=== PATIENT | female | born 1975 | race Caucasian/White ===

== ENCOUNTER 2018-01-26 11:40 | Emergency (ER) | payer MEDICARE, MEDICAID, SELFPAY ==
[2018-01-26 12:03] VITALS: BP 134/67; PULSE 77; RESP 15; TEMP 36.6; O2SAT 98
[2018-01-26] MEDS: Lidocaine 1% Pres-Free 5 ML VIAL (13:22)
--- NOTE | 2018-01-26 13:23 | ED.GENADUL ---
Disposition Clinical Impression: Fish hook injury of finger of left hand Disposition: HOME Condition: Improving Instructions: Soft Tissue Foreign Body (ED) Additional Instructions: Return immediately for any signs of infection such as purulent drainage, significant increase in swelling or redness, redness up the arm. Otherwise keep wound clean and dry and take [id number] Tylenol Motrin as needed for discomfort Prescriptions: Sulfameth/Trimeth Ds [Bactrim Ds Tablet] 2 each PO BID #10 tab Referrals: Briana Oseguera [Primary Care Provider] - (As needed for reassessment) Medical Decision Making - Medical Decision Making Patient presenting the emergency department for fishhook injury to left middle finger while attempting to remove it from a vacuum leather cleaner. Patient is unsure if fishhook had been used before. Patient consented to digital block and 3 mL's were instilled into the finger and attempt to remove the fishhook was done which is altered and inability to fully remove it due to only partial anesthetic level. 1 more mL was injected locally to area of fishhook and appropriate anesthetic level was achieved and fishhook was then cut and pushed through the skin. Puncture wound was then irrigated with saline. Patient was placed upon Bactrim for empiric treatment of possible infection and encouraged to return immediately for any new or worsening symptoms otherwise follow-up with primary care as needed. Patient tolerated procedure well with no complications beyond mild bleeding. After discussion of diagnosis and plan of care with patient patient agreed and stated no further needs, questions, or concerns at this time. History of Present Illness - General Chief complaint: Laceration Stated complaint: FISH HOOK Time Seen by Provider: 01/26/18 13:22 Source: patient, RN notes reviewed Mode of arrival: ambulatory Limitations: no limitations - History of Present Illness Initial comments: Patient reports approximately 20 minutes prior to arrival she was attempting to remove a fishhook from her vacuum leather cleaner. When she was pulling on it she got stuck in her left middle finger. Patient denies any other injury or trauma. She does state that she attempted to remove it but due to severe pain was unable to remove it. Onset/Timin -: minutes(s) Location: left, upper extremity Severity scale (1-10): 8 Quality: sharp Consistency: constant Improves with: none Worsens with: none Associated Symptoms: denies other symptoms Treatments Prior to Arrival: none - Related Data Ibuprofen [Motrin] 800 mg PO PRN PRN 02/16/13 OxyCODONE/APAP 5 mg/325 mg [Percocet 5 mg/325 mg] 1 tab PO TID PRN PRN 02/16/13 Oxycodone HCl [Oxycontin] 20 mg PO BID 02/16/13 Pregabalin [Lyrica] 150 mg PO TID 02/16/13 Fluoxetine HCl 60 mg PO BID 06/05/13 Nicotine [Nicoderm Cq] 21 mg TP DAILY 06/05/13 TiZANidine [Zanaflex] 4 mg PO TID PRN 12/16/13 Albuterol Sulfate [Proair Hfa] 2 puff IH Q4H PRN inhaler 05/17/17 Sulfameth/Trimeth Ds [Bactrim Ds Tablet] 2 each PO BID #10 tab 01/26/18 Allergies Allergy/AdvReac Type Severity Reaction Status Date / Time Penicillins Allergy Unknown Unverified 01/26/18 12:06 morphine AdvReac Intermediate FLU LIKE Unverified 01/26/18 12:06 SYMPTOMS hydrocodone bitartrate AdvReac Unknown Nausea Unverified 01/26/18 12:06 [From Vicodin] Review of Systems Constitutional: denies: chills, fever Musculoskeletal: as per HPI Skin: as per HPI Comment: All other systems reviewed and negative Past Medical History - Past Medical History Back pain/sciatica, carpal tunnel Surgical history: other (Breast reduction, back surgery) Psychiatric history: depression 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 Absent: altered, motor sensory deficit - Psychiatric Psychiatric exam: Present: anxious - Skin Skin exam: Present: warm, dry, other (Patient has a metallic fishhook noted in the left middle finger with mild bleeding and swelling surrounding the area.) Course Vital Signs - 24 hr 01/26/18 12:03 Temperature 36.6 C Pulse 77 Respiratory 15 Rate Blood Pressure 134/67 Pulse Oximetry 98
--- NOTE | 2018-01-26 13:26 | ED.GENADUL_ITS ---
Disposition Clinical Impression: Fish hook injury of finger of left hand Disposition: HOME Condition: Improving Instructions: Soft Tissue Foreign Body (ED) Additional Instructions: Return immediately for any signs of infection such as purulent drainage, significant increase in swelling or redness, redness up the arm. 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 Patient is unsure if fishhook had been used before. Patient consented to digital block and 3 mL' s were instilled into the finger and attempt to remove the fishhook was done which is altered and inability to fully remove it due to only partial anesthetic level. 1 more mL was injected locally to area of fishhook and appropriate anesthetic level was achieved and fishhook was then cut and pushed through the skin. Puncture wound was then irrigated with saline. Patient was placed upon Bactrim for empiric treatment of possible infection and encouraged to return immediately for any new or worsening symptoms otherwise follow-up with primary care as needed. Patient tolerated procedure well with no complications beyond mild bleeding. After discussion of diagnosis and plan of care with patient patient agreed and stated no further needs, questions, or concerns at this time. 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 When she was pulling on it she got stuck in her left middle finger. Patient denies any other injury or trauma. She does state that she attempted to remove it but due to severe pain was unable to remove it. Onset/Timin -: minutes(s) Location: left, upper extremity Severity scale (1-10): 8 Quality: sharp Consistency: constant Improves with: none Worsens with: none Associated Symptoms: denies other symptoms Treatments Prior to Arrival: none - Related Data Ibuprofen [Motrin] 800 mg PO PRN PRN 02/16/13 OxyCODONE/APAP 5 mg/325 mg [Percocet 5 mg/325 mg] 1 tab PO TID PRN PRN 02/16/13 Oxycodone HCl [Oxycontin] 20 mg PO BID 02/16/13 Pregabalin [Lyrica] 150 mg PO TID 02/16/13 Fluoxetine HCl 60 mg PO BID 06/05/13 Nicotine [Nicoderm Cq] 21 mg TP DAILY 06/05/13 TiZANidine [Zanaflex] 4 mg PO TID PRN 12/16/13 Albuterol Sulfate [Proair Hfa] 2 puff IH Q4H PRN inhaler 05/17/17 Sulfameth/Trimeth Ds [Bactrim Ds Tablet] 2 each PO BID #10 tab 01/26/18 Allergies Allergy/AdvReac Type Severity Reaction Status Date / Time Penicillins Allergy Unknown Unverified 01/26/18 12:06 morphine AdvReac Intermediate FLU LIKE Unverified 01/26/18 12:06 SYMPTOMS hydrocodone bitartrate AdvReac Unknown Nausea Unverified 01/26/18 12:06 [From Vicodin] Review of Systems Constitutional: denies: chills, fever Musculoskeletal: as per HPI Skin: as per HPI Comment: All other systems reviewed and negative Past Medical History - Past Medical History Back pain/sciatica, carpal tunnel Surgical history: other (Breast reduction, back surgery) Psychiatric history: depression [employer]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 Absent: altered, motor sensory deficit - Psychiatric Psychiatric exam: Present: anxious - Skin Skin exam: Present: warm, dry, other (Patient has a metallic fishhook noted in the left middle finger with mild bleeding and swelling surrounding the area.) Course Vital Signs - 24 hr 01/26/18 12:03 Temperature 36.6 C Pulse 77 Respiratory 15 Rate Blood Pressure 134/67 Pulse Oximetry 98
[2018-01-26] MEDS: Sulfameth/Trimeth DS TAB 2 TAB PO (13:29)
== END 2018-01-26 13:33 | disposition home or self-care (01) ==
PROVIDERS: Emergency Provider Emergency Medicine; PCP Nurse Practitioner Family
DX: S60.453A Superficial foreign body of left middle finger, initial encounter (principal); W45.8XXA Other foreign body or object entering through skin, initial encounter
CPT/HCPCS: 64450 ×2; 90471; 99283 ×2

== ENCOUNTER 2019-04-08 14:28 | Outpatient (REF) | payer MEDICARE, SELFPAY ==
[2019-04-10 11:47] LABS: Hepatitis B Surface Ag Negative (NEGAT)
[2019-04-10 12:48] LABS: Hepatitis C Ab w Rflx HCV PCR Negative (NEGAT)
[2019-04-10 12:51] LABS: HIV-1/2 Ag & Ab Screen Negative (NEGAT)
== END 2019-04-08 14:48 ==
LOC: NCHCN 14:28
PROVIDERS: PCP Nurse Practitioner Family; Visit Provider Family Medicine
DX: Z11.59 Encounter for screening for other viral diseases (principal); Z11.4 Encounter for screening for human immunodeficiency virus [HIV]; R69 Illness, unspecified
CPT/HCPCS: 86803; 87340; 87389

== ENCOUNTER 2021-02-08 14:44 | Outpatient (REF) | payer OTHER, MEDICAID, SELFPAY ==
--- NOTE | 2021-02-08 11:00 | PAPFT_PTH ---
PATIENT: Cherelle Gibbons LOC: [facility] U#:[id number] AGE/SX: 45/F ROOM: RE02/08/[address]: Frederick Jimenez : 1975 BED: DIS: 02/08/2021 SPEC #: [id number] RECD: 02/09/21 18:08 STATUS: IRA REQ #: [id number] KWAME: 02/08/21 11:[address]: Frederick Jimenez DEPT: [facility] Cytology RECD BY: Yary Lewis Tissues: 1 - CX/ENDOCX FOR PAP SMEARS Procedures: PAP THIN PREP/UVM Screening HPV DNA PROBE Comments: [id number]
[2021-02-13 14:40] LABS: Chlamydia Result Negative (Negative); GC Result Negative (Negative)
== END 2021-02-08 14:45 | disposition home or self-care (01) ==
LOC: LBN 14:44
PROVIDERS: PCP Family Medicine; Visit Provider Family Medicine
DX: Z11.3 Encounter for screening for infections with a predominantly sexual mode of transmission (principal); Z12.4 Encounter for screening for malignant neoplasm of cervix; Z11.51 Encounter for screening for human papillomavirus (HPV); Z01.419 Encounter for gynecological examination (general) (routine) without abnormal findings
CPT/HCPCS: 87491; 87591; 88142; 87624

== ENCOUNTER → 2021-11-22 01:23 | Outpatient (CLI) | payer OTHER, MEDICAID, SELFPAY ==
--- NOTE | 2021-11-22 13:13 | DI.RAD_ITS ---
Exam(s) XR CHEST 2V PA LATERAL EXAM: XR CHEST 2V PA LATERAL CLINICAL HISTORY: SOB, R06.02. TECHNIQUE: 2D digital imaging was performed. COMPARISON: CR CHEST 2 VIEWS PA,LAT from 08/20/2016 FINDINGS: 2 views: Heart size is normal. The mediastinum is not widened. Lungs are clear. No infiltrates nor pleural effusions. IMPRESSION: No acute pulmonary findings.No significant change compared to 08/20/2016. DATA REPOSITORY: RADIATION DOSE DELIVERED:
== END ==
PROVIDERS: PCP Family Medicine; Visit Provider Family Medicine
DX: R06.02 Shortness of breath (principal)
CPT/HCPCS: 71046

== ENCOUNTER 2022-02-28 08:13 | Inpatient (IN) | payer OTHER, MEDICAID, SELFPAY ==
[2022-02-28] VITALS (71 sets, daily range): BP systolic 97–180; BP diastolic 47–114; PULSE 70–132; RESP 10–28; TEMP 36.5–36.6; O2SAT 92–98
--- NOTE | 2022-02-28 08:15 | RT.EKG_ITS ---
APPROVED REPORT Exam: Resting ECG Reason for Exam: chest pain Patient Location: E HR:92 bpm ECG Measurements Heart Rate 92 AXIS MD 209 P 66 QRSd 101 QRS -12 QT 358 T 62 QTc 443 Conclusion Sinus rhythm...normal P axis, V-rate 60- 99 Prolonged MD interval...MD >205, V-rate 91-120 Probable LVH with secondary repol abnrm...multiple LVH criteria Inferior infarct, old...Q >35mS, II III aVF Abnormal Electrocardiogram
--- OUTSIDE RECORDS SUMMARY | 2022-02-28 08:29 | XMS_ITS | Clinical Summary ---
:1975 Author Organization [facility] [place] [address] Care Team Providers Name Role Phone Frederick Cedillo MD Primary Care Provider Allergies Active Allergy Reactions Severity Noted Date Comments Morphine Other (See Comments) 08/23/2011 Flu lik e symptoms Penicillins Other (See Comments) Not dashawn e Hydrocodone-Acetaminophen Other (See Comments) 012 Not sure Medications Medication Sig Dispensed Refills Start Date End Date Status PREGABALIN (LYRICA ORAL) Take 150 mg by 0 Active mouth 3 times daily. ibuprofen (ADVIL;MOTRIN) Take 800 mg by 0 Active 800 mg tablet mouth as needed. OXYcodone (OXYCONTIN) 40 Take 40 mg by 0 Active mg CR tablet mouth every morning. OXYcodone (OXYCONTIN) 20 Take 20 mg by 0 Active mg CR tablet mouth nightly. OXYcodone-acetaminophen Take 1 tablet 0 Active (PERCOCET) 5-325 mg per by mouth every tablet 4 hours as needed. cyclobenzaprine Take 10 mg by 0 Active (FLEXERIL) 10 mg tablet mouth daily as needed. FLUoxetine (PROZAC) 40 mg Take 40 mg by 0 Active capsule mouth daily. Active Problems Problem Noted Date HNP (herniated nucleus pulposus), lumbar 08/23/2011 Social History Tobacco Use Types Packs/Day Years Used Date Current Every Day Smoker Cigarettes 0.5 20 Smokeless Tobacco: Never Used Tobacco Cessation: Ready to Quit: No; Co unseling Given: Yes Sex Assigned at Date Recorded Not on file Last Filed Vital Signs Vital Sign Reading Time Taken Comments Blood Pressure 123/82 08/27/2011 12:11 PM EDT Pulse 106 08/27/2011 12:11 PM EDT Temperature - - Respiratory Rate - - Oxygen Saturation 99% 08/27/2011 12:11 PM EDT Inhaled Oxygen Concentration - - Weight 95.3 kg (210 lb) 10/04/2011 2:09 PM EDT Height 162.6 cm (5' 4) 10/04/2011 2:09 PM EDT Body Mass Index 36.05 10/04/2011 2:09 PM EDT Plan of Treatment Health Maintenance Due Date Last Done Comments Covid-19 Vaccine (#1) 1978 HIV screen 1991 Hepatitis C Screening 1991 Tdap adult 1992 Tetanus vaccine 1992 HPV test 2003 PAP Smear 2003 Breast Cancer Share Decision Needed 2013 Colonoscopy 2018 Influenza (Flu) vaccine (1 of 1 - Influenza standard 02/08/2022 series) Care Teams Professor Of Law Relationship Specialty Start Date End Date Frederick Cedillo MD PCP - General 09/29/18 [address] [employer] [place] [address]
--- OUTSIDE RECORDS SUMMARY | 2022-02-28 08:30 | XMS_ITS | Encounter Summary ---
:1975 Author Organization [facility] [place] [address] Care Team Providers Name Role Phone Frederick Cedillo MD Primary Care Provider Encounter Details Date Type Department Care Team Description 10/28/2012 External Results XRay at [facility] Peter Gaytan MD [address] [place] [address] [place] [address] NEUROSURGERY [phone] [place], [place] [address] (Wo rk) Social History Tobacco Use Types Packs/Day Years Used Date Current Every Day Smoker Cigarettes 0.5 20 Smokeless Tobacco: Never Used Sex Assigned at Date Recorded Not on file documented as of this encounter Plan of Treatment Not on filedocumented as of this encounter Procedures Procedure Name Priority Date/Time Associated Diagnosis Comme nts MRI/MRA SCAN Routine 03/25/2009 documented in this encounter Results Scan Doc: MRI/MRA (03/25/2009) Anatomical Region Laterality Modality Other Narrative This result has an attachment that is no t available. Peter Gaytan MD MEDIA MGR SCAN EXT ORDR/RSLT documented in this encounter Visit Diagnoses Not on filedocumented in this encounter Care Teams Justowriter Operator Relationship Specialty Start Date End Date Frederick Cedillo MD PCP - General 05/02/10 09/28/18 documented as of this encounter
--- OUTSIDE RECORDS SUMMARY | 2022-02-28 08:30 | XMS_ITS | Encounter Summary ---
:1975 Author Organization [facility] [place] [address] Care Team Providers Name Role Phone Frederick Cedillo MD Primary Care Provider Encounter Details Date Type Department Care Team Description 10/03/2011 Abstract Spine Center at [facility] Felecia Castellon, [place] [address] Social History Tobacco Use Types Packs/Day Years Used Date Current Every Day Smoker Cigarettes 1 20 Smokeless Tobacco: Never Used Sex Assigned at Date Recorded Not on file documented as of this encounter Plan of Treatment Not on filedocumented as of this encounter Visit Diagnoses Not on filedocumented in this encounter Care Teams Aquatics Specialist Relationship Specialty Start Date End Date Frederick Cedillo MD PCP - General 05/02/10 09/28/18 documented as of this encounter
--- OUTSIDE RECORDS SUMMARY | 2022-02-28 08:30 | XMS_ITS | Encounter Summary ---
:1975 Author Organization [facility] [place] [address] Care Team Providers Name Role Phone Frederick Cedillo MD Primary Care Provider Encounter Details Date Type Department Care Team Description 03/25/2009 Orders Only Spine [facility] at [facility] Robert Holt MD [facility] [place] [address] SPINE CENTER [phone] [place], [place] [address] (Wo rk) Social History Tobacco Use Types Packs/Day Years Used Date Never Assessed Sex Assigned at Date Recorded Not on file documented as of this encounter Plan of Treatment Not on filedocumented as of this encounter Procedures Procedure Name Priority Date/Time Associated Diagnosis Comme nts FILM LIBRARY Routine 03/25/2009 9:15 AM Results f or this STORAGE ONLY MR EDT procedure ar e in SPINE the results section. documented in this encounter Results Film Library- Storage only MR Spine (03/25/2009 9:15 AM EDT) Specimen (Source) Anatomical Collection Method Collection Time Re ceived Time Location / / Volume Laterality 03/25/2009 9:15 AM EDT Narrative RAD - 11/18/2013 2:56 PM EDT This is a non-reportable exam. Procedure Note Israel Rodriguez - 11/18/2013Formatting of t his note might be different from the original. This is a non-reportable exam. Robert Alvarez MD IMG FILM LIBRARY ORDERABLES Performing Organization Address City/State/ZIP Code Phon e Number [facility] [address] [facility] [place] [address] documented in this encounter Visit Diagnoses Not on filedocumented in this encounter Care Teams Relations Mgr Relationship Specialty Start Date End Date Frederick Cedillo MD PCP - General 05/02/10 09/28/18 documented as of this encounter
--- OUTSIDE RECORDS SUMMARY | 2022-02-28 08:30 | XMS_ITS | Encounter Summary ---
:1975 [place] [address] Care Team Providers Name Role Phone Frederick Cedillo MD Primary Care Provider Encounter Details Date Type Department Care Team Description 05/23/2012 Abstract Spine Center at [facility] Denise Marquez, [place] [address] Social History Tobacco Use Types Packs/Day Years Used Date Current Every Day Smoker Cigarettes 0.5 20 Smokeless Tobacco: Never Used Sex Assigned at Date Recorded Not on file documented as of this encounter Plan of Treatment Not on filedocumented as of this encounter Visit Diagnoses Not on filedocumented in this encounter Care Teams Personnel Placement Specialist Relationship Specialty Start Date End Date Frederick Cedillo MD PCP - General 05/02/10 09/28/18 documented as of this encounter
--- OUTSIDE RECORDS SUMMARY | 2022-02-28 08:30 | XMS_ITS | Encounter Summary ---
:1975 [place] [address] Care Team Providers Name Role Phone Frederick Cedillo MD Primary Care Provider Encounter Details Date Type Department Care Team Description 06/20/2011 Orders Only Spine Center at [facility] Robert Alvarez MD [facility] [place] [address] SPINE CENTER [phone] [place], [place] [address] (Wo rk) Social History Tobacco Use Types Packs/Day Years Used Date Never Assessed Sex Assigned at Date Recorded Not on file documented as of this encounter Plan of Treatment Not on filedocumented as of this encounter Procedures Procedure Name Priority Date/Time Associated Diagnosis Comme nts FILM LIBRARY Routine 06/20/2011 1:48 PM Results f or this STORAGE ONLY MR EST procedure ar e in SPINE the results section. documented in this encounter Results FILM LIBRARY- STORAGE ONLY MR SPINE (06/20/2011 1:48 PM EST) Anatomical Region Laterality Modality Other Specimen (Source) Anatomical Collection Method Collection Time Re ceived Time Location / / Volume Laterality 06/20/2011 1:48 PM EST Narrative 07/30/2013 9:41 PM EST This is a non-reportable exam. Procedure Note Israel Rodriguez - 07/30/2013Formatting of t his note might be different from the original. This is a non-reportable exam. Robert Alvarez MD IMG FILM LIBRARY ORDERABLES documented in this encounter Visit Diagnoses Not on filedocumented in this encounter Care Teams Aviation Ordnance Officer Relationship Specialty Start Date End Date Frederick Cedillo MD PCP - General 05/02/10 09/28/18 documented as of this encounter
--- OUTSIDE RECORDS SUMMARY | 2022-02-28 08:30 | XMS_ITS | Encounter Summary ---
:1975 Author Organization [facility] [place] [address] Care Team Providers Name Role Phone Frederick Cedillo MD Primary Care Provider Reason for Visit Reason Comments Backache Left Leg Pain Encounter Details Date Type Department Care Team Description 08/27/2011 Procedure visit [facility] at [facility] HNP (herniated nucleus pulposus), lumbar; [facility] MD Lydia Displacement of lumbar intervertebral di sc without myelopathy [facility] [address] [place] [facility] [id number] [place], [place] [phone] [facility] Social History Tobacco Use Types Packs/Day Years Used Date Current Every Day Smoker Cigarettes 1 20 Smokeless Tobacco: Never Used Sex Assigned at Date Recorded Not on file documented as of this encounter Last Filed Vital Signs Vital Sign Reading Time Taken Comments Blood Pressure 123/82 08/27/2011 12:11 PM EDT Pulse 106 08/27/2011 12:11 PM EDT Temperature - - Respiratory Rate - - Oxygen Saturation 99% 08/27/2011 12:11 PM EDT Inhaled Oxygen Concentration - - Weight - - Height - - Body Mass Index - - documented in this encounter Patient Instructions Patient InstructionsAngeli Barahona LPN - 08/27/2011 12:01 PM EDT [facility] Discharge Instructions: You were seen by Dr. Tyler Ley MD who performed transforaminal injection. [x] You may resume your normal activities: tomorrow. You may shower today. DO NOT tub bathe, use whirlpools, hot tubs or pool therapy for 2 days. Remove Band-Aid(s) later today/tomorrow. Do not drive until tomorrow. Use caution walking/climbing stairs as you may be unsteady on your feet. You may use your usual medications, including pain medications, as directed, unless otherwise instructed. You may use an ice pack as needed for the first 24 hours, on for 20 minutes then off for 20 minutes.Do not apply heat today. Attempt to empty your bladder 4-6 hours after your procedure. You received the following medications: Lidocaine, Omnipaque (contrast dye) and Dexamethasone SodiumPhosphate 8 mg. During regular business hours, please phone the Pain Management Center at for appointments or with any questions or if the following or other troubling symptoms develop: 1) Prolonged dizziness or weakness (more than 1 day). 2) Localized swelling, redness or drainage at the injection site(s). 3) Temperature of 101 degrees that lasts for more than 4 hours. After 5 PM or on weekends, call and ask for Pain Clinic provider on-call. If you are unable to reach the Pain Management Center and have a complication, please call your Primary Care Provider or proceed to your local emergency department. Angeli Barahona LPN Special instructions documented in this encounter Progress Notes Angeli Barahona LPN - 08/27/2011 11:51 AM EDT Pre-Procedure Screening Questions: 1. Status: No 2. 3. Patient states they have a courtesy bus driver to transport after procedure? Yes 4. Patient taking antibiotics at present? No 5. NPO per Pain Management Center protocol? No 6. 7. Patient diabetic: No __ borderline (not treated with medications) __ managed with oral medications __ managed with injected medications 8. Patient routinely taking anticoagulants ? No Date stopped Current INR Patient Vital Signs documented in Doc Flowsheets associated with this encounter. Patient Discharge Instructions were reviewed with patient and copy provided to patient. documented in this encounter Procedure Notes Tyler Ley MD - 08/27/2011 12:21 PM EDTAssociated Order(s): TRANSFORAMINAL INJECTION Pre-Procedure Diagnose(s): HNP (herniated nucleus pulposus), lumbar; Displacement of lumbar intervertebral disc without myelopathy LUMBAR / SACRAL TRANSFORAMINAL INJECTION Cherelle Gibbons has been referred to the [facility] for a transforaminal nerve root blockand steroid injection. COMMENTS: left S1 requested Cherelle Gibbons was interviewed and the medical record reviewed. There were no medical, pharmacologic, radiographic or other structural contraindications to attempting fluoroscopically guided transforaminal nerve root block and epidural steroid injection. Risks and expected side effects as well as potential benefit of the procedure were reviewed with Cherelle Gibbons, and her voiced concerns addressed. The printed consent form was signed and witnessed. Standard time-out procedure was performed. Cherelle Gibbons was placed in the prone position on the fluoroscopy table and automated blood pressure cuff and pulse oximeter applied. Fluoroscopy was utilized to identify the L-5 vertebral body. The left-sided oblique projection was then fashioned to see the S1 neural foramen. A skin anthony was made for the needle insertion site. A Chlorhexadine prep was carried out, and sterile drapes were applied. Local anesthesia was achieved in the skin and subcutaneous tissues. A 22 gauge curved tip spinal needle was then inserted, advanced with fluoroscopic guidance until it entered into the neural foramen, confirmed on the lateral view. After negative aspiration, 1 cc of Omnipaque 240 was injected. This showed a good spread of dye transforaminally into the epidural space and along the S1 root left. After repeat negative aspiration 8 mg Decadron was injected, followed by 1.5 cc's of 1% Xylocaine flush for the nerve root block, as well. There was no unusual discomfort expressed by Cherelle Gibbons. The needle was withdrawn. The patient tolerated the procedure well. A Band-Aid was applied. Cherelle Gibbons's vital signs were stable throughout the procedure and were as recorded in nursing records. Intravenous drugs for sedation and analgesia were not given as ordered by me. Follow up plan and appointments were discussed with Cherelle Gibbons. Post procedure instructions weregiven as documented in nursing records and having met discharge criteria, she was discharged from the [facility] Management [facility]. COMMENTS: Patient reported leg pain gone upon sitting up in the procedure room. documented in this encounter Miscellaneous Notes Miscellaneous - Michel, [employer] - 09/04/2011 11:57 AM EDT documented in this encounter Plan of Treatment Not on filedocumented as of this encounter Procedures Procedure Name Priority Date/Time Associated Diagnosis Comme nts TRANSFORAMINAL Routine 08/27/2011 12:22 HNP (herniated Results for this INJECTION PM EDT nucleus pulposus), procedure are in lumbar the results Displacement of section. lumbar intervertebral disc without myelopathy documented in this encounter Results TRANSFORAMINAL INJECTION (08/27/2011 12:22 PM EDT) Narrative Tyler Ley MD - 08/27/2011 12:22 PM EDT LUMBAR / SACRAL TRANSFORAMINAL INJECTION Cherelle Gibbons has been referred to the [facility] for a transforaminal nerve root block and ster oid injection. ??COMMENTS: left S1 requested Cherelle Gibbons was interviewed and the m edical record reviewed. ??There were no medical, pharmacologic, radiogra phic or other structural contraindications to attempting fluorosc opically guided transforaminal nerve root block and epidural steroid in jection. ??Risks and expected side effects as well as potential benefit of the procedure were reviewed with Cherelle Lora Shai, and her voiced concerns addressed. ??The printed consent form was signed and witnessed. ??Standar d time-out procedure was performed. Cherelle Gibbons was placed in the prone p osition on the fluoroscopy table and automated blood pressure cuff and pu lse oximeter applied. ??Fluoroscopy was utilized to identify the L-5 vertebr al body. ??The left-sided oblique projection was then fashioned to see the S1 neural foramen. ??A skin anthony was made for the needle insertion site. ??A Chlorhexadine prep was carried out, and sterile drapes were applied. ?? Local anesthesia was achieved in the skin and subcutaneous tissues. ??A 2 2 gauge curved tip spinal needle was then inserted, advanced with fluoros copic guidance until it entered into the neural foramen, confirmed on th e lateral view. ??After negative aspiration, 1 cc of Omnipaque 240 was in jected. ??This showed a good spread of dye transforaminally into the epidura l space and along the S1 root left. ??After repeat negative aspiration 8 mg Decadron was injected, followed by 1.5 cc's of 1% Xylocaine flu sh for the nerve root block, as well. ??There was no unusual discomfort expressed by Cherelle Gibbons. ??The needle was withdrawn. The patient tolera anam the procedure well. ??A Band-Aid was applied. Cherelle Gibbons's vital signs were stable throughout the procedure and were as recorded in nursing records. ??Intrav enous drugs for sedation and analgesia were not given as ordered by miky banuelos. ?? Follow up plan and appointments were dis cussed with Cherelle Gibbons. Post procedure instructions were given as doc umented in nursing records and having met discharge criteria, she was d ischarged from the [facility] Management Center. COMMENTS: Patient reported leg pain gone upon sitting up in the procedure room. Procedure Note Tyler Ley MD - 08/27/2011 12:21 PM EDT LUMBAR / SACRAL TRANSFORAMINAL INJECTION Cherelle Gibbons has been referred to the [facility] for a transforaminal nerve root block and steroid injection. COMMENTS: left S1 requested Cherelle Gibbons was interviewed and the m edical record reviewed. There were no medical, pharmacologic, radiographic or other structural contraindications to attempting fluoroscopically guided transforaminal nerve root block and epidural steroid in jection. Risks and expected side effects as well as potential benefit of the procedure were reviewed with Cherelle Gibbons, and her voiced concerns addressed. The printed consent form was signed and witnessed. Standard time-out procedure was performed. Cherelle Gibbons was placed in the prone p osition on the fluoroscopy table and automated blood pressure cuff and pulse oximeter applied. Fluoroscopy was utilized to identify the L-5 vertebral body. The left-sided oblique projection was then fashioned to see the S1 neural foramen. A skin anthony was made for the needle insertion site. A Chlorhexadine prep was carried out, and sterile drapes were applied. Local anesthesia was achieved in the skin and subcutaneous tissues. A 22 gauge curved tip spinal needle was then inserted, advanced with fluoroscopic guidance until it entered into the neural foramen, confirmed on the lateral view. After negative aspiration, 1 cc of Omnipaque 240 was in jected. This showed a good spread of dye transforaminally into the epidural space and along the S1 root left. After repeat negative aspiration 8 mg Decadron was injected, followed by 1.5 cc's of 1% Xylocaine flu sh for the nerve root block, as well. There was no unusual discomfort expressed by Cherelle Gibbons. The needle was withdrawn. The patient tolerated the procedure well. A Band-Aid was applied. Cherelle Gibbons's vital signs were stable throughout the procedure and were as recorded in nursing records. Intravenous drugs for sedation and analgesia were not given as ordered by me. Follow up plan and appointments were dis cussed with Cherelle Gibbons. Post procedure instructions were given as documented in nursing records and having met discharge criteria, she was discharged from the [facility]. COMMENTS: Patient reported leg pain gone upon sitting up in the procedure room. Tyler Ley MD PROCEDURE/MINOR SURGICAL ORD ERABLES documented in this encounter Visit Diagnoses Diagnosis HNP (herniated nucleus pulposus), lumbar Displacement of lumbar intervertebral di sc without myelopathy Displacement of lumbar intervertebral di sc without myelopathy documented in this encounter Administered Medications Inactive Administered Medications - up to 3 most recent administrations Medication Order MAR Action Action Date Dose Rate Site dexamethasone sodium (PF) injection Given 08/27/2011 12:15 PM ED T 8 mg 8 mg 8 mg, Epidural, ONCE, 1 dose, On Sat08/27/11 at 1215, Wasted 2mg, Routine iohexol (OMNIPAQUE) injection 1 mL Given 08/27/2011 12:15 PM EDT 1 mL 1 mL, Epidural, ONCE, 1 dose, On Sat08/27/11 at 1215, Wasted 49 ml, Routine documented in this encounter Care Teams Rn Home Health Relationship Specialty Start Date End Date Frederick Cedillo MD PCP - General 05/02/10 09/28/18 documented as of this encounter
--- OUTSIDE RECORDS SUMMARY | 2022-02-28 08:30 | XMS_ITS | Encounter Summary ---
:1975 [place] [address] Care Team Providers Name Role Phone Frederick Cedillo MD Primary Care Provider Reason for Referral Consultation (Routine) - Closed Specialty Diagnoses / Procedures Referred By Contact Refer red To Contact Pain Management Diagnoses HNP (herniated nucleus pulposus), lumbar Robert Alvarez MD [facility] [address] [place] [address] [facility] [address] Fax: Referral ID Status Reason Start Date Expiration Date Visits V isits Requested Authorized [id number] Closed Consult Only 08/23/2011 02/19/2012 1 1 Reason for Visit Reason Comments Low Back Pain Left Leg Pain posterior leg pain into the small toe Encounter Details Date Type Department Care Team Description 08/23/2011 Office Visit Spine Center at Robert Alvarez, HNP (her niated radha Moran MD pulposus), lumbar Count includes the [facility] (Pr imary Dx) Drive [place], [place] [facility] [address] [place] [address] [phone] Social History Tobacco Use Types Packs/Day Years Used Date Current Every Day Smoker Cigarettes 1 20 Smokeless Tobacco: Never Used Tobacco Cessation: Ready to Quit: No; Co unseling Given: Yes Sex Assigned at Date Recorded Not on file documented as of this encounter Last Filed Vital Signs Vital Sign Reading Time Taken Comments Blood Pressure 128/72 08/23/2011 2:05 PM EDT Pulse - - Temperature - - Respiratory Rate - - Oxygen Saturation - - Inhaled Oxygen Concentration - - Weight 95.3 kg (210 lb) 08/23/2011 2:05 PM EDT Height 157.5 cm (5' 2) 08/23/2011 2:05 PM EDT Body Mass Index 38.41 08/23/2011 2:05 PM EDT documented in this encounter Patient Instructions Patient InstructionsLotusDenise flores, RAPIER INSERTION LOOM FIXER - 08/23/2011 2:06 PM EDT Stopping Smoking: After Your Visit Your Care Instructions Cigarette smokers crave the nicotine in cigarettes. Giving it up is much harder than simply changinga habit. Your body has to stop craving the nicotine. It is hard to quit, but you can do it. There are many tools that people use to quit smoking. You may find that combining tools works best for you. There are several steps to quitting. First you get ready to quit. Then you get support to help you. After that, you learn new skills and behaviors to become a nonsmoker. For many people, a necessary step is getting and using medicine. Your doctor will help you set up the plan that best meets your needs. You may want to attend a smoking cessation program to help you quit smoking. When you choose a program, look for one that has proven success. Ask your doctor for ideas. You will greatly increase your chances of success if you take medicine as well as get counseling or join a cessation program. Some of the changes you feel when you first quit tobacco are uncomfortable. Your body will miss the nicotine at first, and you may feel short-tempered and grumpy. You may have trouble sleeping or concentrating. Medicine can help you deal with these symptoms. You may struggle with changing your smokinghabits and rituals. The last step is the tricky one: Be prepared for the smoking urge to continue for a time. This is a lot to deal with, but keep at it. You will feel better. Follow-up care is a yusuf part of your treatment and safety. Be sure to make and go to all appointments, and call your doctor if you are having problems. It???s also a good idea to know your test resultsand keep a list of the medicines you take. How can you care for yourself at home? Ask your family, friends, and coworkers for support. You have a better chance of quitting if you have help and support. Join a support group, such as Nicotine Anonymous, for people who are trying to quit smoking. Consider signing up for a smoking cessation program, such as the [place] [employer]'s Freedomfrom Smoking program. Set a quit date. Pick your date carefully so that it is not right in the middle of a big deadline orstressful time. Once you quit, do not even take a puff. Get rid of all ashtrays and lighters after your last cigarette. Clean your house and your clothes so that they do not smell of smoke. Learn how to be a nonsmoker. Think about ways you can avoid those things that make you reach for a cigarette. Avoid situations that put you at greatest risk for smoking. For some people, it is hard to have a drink with friends without smoking. For others, they might skip a coffee break with coworkers who smoke. Change your daily routine. Take a different route to work or eat a meal in a different place. Cut down on stress. Calm yourself or release tension by doing an activity you enjoy, such as readinga book, taking a hot bath, or gardening. Talk to your doctor or pharmacist about nicotine replacement therapy, which replaces the nicotine inyour body. You still get nicotine but you do not use tobacco. Nicotine replacement products help youslowly reduce the amount of nicotine you need. These products come in several forms, many of them available [id number]: Nicotine patches Nicotine gum and lozenges Nicotine inhaler Ask your doctor about bupropion (Wellbutrin) or varenicline (Chantix), which are prescription medicines. They do not contain nicotine. They help you by reducing withdrawal symptoms, such as stress and anxiety. Some people find hypnosis, acupuncture, and massage helpful for ending the smoking habit. Eat a healthy diet and get regular exercise. Having healthy habits will help your body move past itscraving for nicotine. Be prepared to keep trying. Most people are not successful the first few times they try to quit. Do not get mad at yourself if you smoke again. Make a list of things you learned and think about when you want to try again, such as next week, next month, or next year. Visit our health information library at [email or web address]. You can also view health information on [employer], your personal patient account. Log in or sign up today. Enter Y522 in the search box to learn more about Stopping Smoking: After Your Visit. ?? [phone] [employer]. Care instructions adapted under license by [facility]. This care instruction is for use with your licensed healthcare professional. If you have questionsabout a medical condition or this instruction, always ask your healthcare professional. [employer] disclaims any warranty or liability for your use of this information. Content Version: 9.1.075673; Last Revised: December 27, 2010 Welcome to [employer], your secure online access to your electronic medical record at [facility]. Using [employer] you will be able to send messages to your providers, view your test results, renew prescriptions, schedule appointments, and much more. Follow these instructions to enter your personal [employer] account for the first time: 1. Start your internet browser and type [email or web address] into the address bar. 2. In the New User box on the right-hand side of the Welcome page click the link that states, ???I have an activation code.?? 3. On the Identification page, follow these steps: a) Enter your [employer] activation code: [email or web address] b) Expires: 10/07/11 02:06 PM IMPORTANT: This Activation Code will on the above mentioned date. If you do not sign up for [employer] by this date, you will need to request another activation code. c) Enter your date of , using the calendar tool provided. d) Enter your Zip code. e) Select ???submit?? to go to the next page. 4. On the Create Account page, follow these steps: a) Create a [employer] username. This can???t be changed, so choose one you won???t forget. b) Create a password that???s at least six characters long, and that contains at least two numbers. Your password can be changed at any time. Confirm your password by entering it once more. c) Enter your email address. This will be used to alert you to new information. Confirm your email address by entering it once more. d) Enter your security question. This will be used if you forget your password. e) Enter your security answer. Confirm your security answer by entering it once more. f) Select ???submit?? to view your electronic medical record. If you have any questions about myD-H or your Access Code, please call for [place], for [place] or for [place]. If you need technical support, please e-mail [email or web address]. Remember, myD-H is NOT for urgent needs! Always dial 911 for medical emergencies. documented in this encounter Progress Notes Robert Alvarez MD - 08/23/2011 3:06 PM EDT CHIEF COMPLAINT: Left lower extremity pain. HISTORY OF PRESENT ILLNESS: Ms. Gibbons is a 36-year-old female, who presents with left lower extremity pain, who I am seeing in consultation for Dr. Cedillo. The patient has a long history related to her back that goes back to a right L5-S1 diskectomy by Dr. Hearn in 2001. She got a short period of relief from that. She subsequently developed low back pain and lower extremity pain. She saw Dr. Gaytan two years ago for back pain and lower extremity pain and was found to have a left-sided L5-S1 disk herniation. They elected not to proceed with surgery as she was having primarily back pain at that point. For the past two months, she has been having worse left lower extremity pain that radiates to her buttock, posterior thigh, posterolateral leg, and lateral foot. This pain is there all the time and worse with sitting, but also bothers her when she stands. This was associated with some numbness in her left posterior thigh and calf and some weakness to lateral left foot and ankle. It does keep her up at night. She denies constitutional symptoms or any bowel or bladder incontinence. She has been doing some physical therapy that has not helped. She had a lumbar epidural steroid injection in [place] that apparently gave her no relief, just over a month ago. She is currently taking OxyContin 40 mg twice a day, 10 mg of oxycodone q.6h., Lyrica, and ibuprofen does not help very much at this stage. As mentioned, she had a prior right-sided L5-S1 diskectomy in 2001. PAST MEDICAL HISTORY: Depression. PAST SURGICAL HISTORY: Lumbar diskectomy, breast reduction. MEDICATIONS: Medications are reviewed and are in eD-H. ALLERGIES: ALLERGIES ARE REVIEWED AND ARE IN ED-H. FAMILY HISTORY: Diabetes, cancer. 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 She has missed one or two days of work related to this. She smokes one pack per day and has done so for over 20 years. She does not drink. REVIEW OF SYSTEMS: All negative except musculoskeletal as above. PHYSICAL EXAM: Patient is 5 feet 2 inches, 210 pounds. General: Patient is quite uncomfortable-appearing and teary. Back: Her back is tender to palpation in the midline. She has an old midline, well-healed longitudinal scar. She can flex 40 degrees and extend 10 degrees. Flexion is worse. Neurologic Exam: She walks with an antalgic gait. She is able to heel walk and toe walk. Motor exam reveals 5/5 strength in all lower extremity muscle groups. She has some numbness on the lateral border of her left foot. Reflexes are 2/4 at the knees, 1/4 at the right ankle, and 0/4 at the left ankle. Clonus and Babinski are negative. She has a positive straight leg raise on the left. Hip Exam: She has normal, painless range of motion of her hips. Vascular Exam: She has palpable pulses bilaterally. IMAGING: MRI of the lumbar spine was obtained on 06/20/2011. This demonstrates a left-sided disk herniation at L5-S1 compressing the traversing S1 root. She has evidence of prior surgery on the right-side at L5-S1. It appears that the spinous process at L5 has been taken down. ASSESSMENT/PLAN: Ms. Gibbons is a 36-year-old female, who presents with left S1 radiculopathy secondary to her left L5-S1 disk herniation. This has been present for at least the past two years based on Dr. Gaytan notes and the prior MRI report. It seems like she has had a recent exacerbation of her symptoms. She is a candidate for a left-sided L5-S1 diskectomy, though she certainly has certain characteristics that may make the amount of improvement she sees less than what is typical. These include her pretty severe depression and hopelessness for which she is seeing a psychiatrist. While she denied any suicidal ideation today, she does feel that she is somewhat hopeless about improving. She did come off her antidepressant medication not too long ago. She is actually continuing treatment with her psychiatrist, and I suggested that she talk to the psychiatrist and consider starting her antidepressant again. Other issues including her high narcotic usage that had been going on for many years, chronic nature of this pain and disk herniation, her smoking, and relatively severe emotional response to her pain all suggested her improvement with diskectomy may be limited. She has also a somewhat increased risk given her prior surgery for a complication. She understands all these factors and would be interested in trying one more injection to see if this could reduce the severity of her pain. We will set up a left S1 selective nerve root injection with pain providers here. I told her if that fails to improve her symptoms in two weeks that she should call and set up another appointment with me. She would need AP, lateral, flexion and extension x-rays before that appointment. If she did fail to improve with the injection, we can discuss surgery. documented in this encounter Plan of Treatment Scheduled Referrals Name Type Priority Associated Diagnoses Order S chedule REFERRAL TO PAIN Outpatient Referral Routine Hnp (Herniated Or dered: CLINIC Nucleus Pulposus), 2 Lumbar documented as of this encounter Visit Diagnoses Diagnosis HNP (herniated nucleus pulposus), lumbar - Primary Displacement of lumbar intervertebral di sc without myelopathy documented in this encounter Care Teams University Administrator Relationship Specialty Start Date End Date Frederick Cedillo MD PCP - General 05/02/10 09/28/18 documented as of this encounter
--- OUTSIDE RECORDS SUMMARY | 2022-02-28 08:30 | XMS_ITS | Encounter Summary ---
:1975 Author Organization [facility] [address] Care Team Providers Name Role Phone Frederick Cedillo MD Primary Care Provider Encounter Details Date Type Department Care Team Description 02/15/2012 Abstract Spine Center at [facility] Felecia Castellon, [place] [address] Social History Tobacco Use Types Packs/Day Years Used Date Current Every Day Smoker Cigarettes 0.5 20 Smokeless Tobacco: Never Used Sex Assigned at Date Recorded Not on file documented as of this encounter Plan of Treatment Not on filedocumented as of this encounter Visit Diagnoses Not on filedocumented in this encounter Care Teams Flooring Helper Relationship Specialty Start Date End Date Frederick Cedillo MD PCP - General 05/02/10 09/28/18 documented as of this encounter
--- OUTSIDE RECORDS SUMMARY | 2022-02-28 08:30 | XMS_ITS | Encounter Summary ---
:1975 Author Organization [place] [address] Care Team Providers Name Role Phone Fredeirck Cedillo MD Primary Care Provider Reason for Visit Reason Onset Date Comments Leg Pain 08/27/2011 Encounter Details Date Type Department Care Team Description 08/27/2011 Telephone Sp[facility] Center at [facility] [place] Gilma Garcia [place] [address] Social History Tobacco Use Types Packs/Day Years Used Date Current Every Day Smoker Cigarettes 1 20 Smokeless Tobacco: Never Used Sex Assigned at Date Recorded Not on file documented as of this encounter Miscellaneous Notes Telephone Encounter - Gilma Garcia RN - 08/27/2011 10:10 AM EDT Received a call from Cherelle stating she is experiencing an increase in her leg pain. She reports that she is not able to walk due to the pain. She denies any weakness or bowel/bladder incontinence. She reports that her pain is in her low back in the area of her tailbone, around the waist line and down her leg. She has a pending appt with the Pain Clinic for a procedure today. She was advised to come to that appt to see if the injection can help give her any relief with her leg pain. She stated she is waiting for her daughter to arrive to bring her down and she will come to the appt as scheduled. documented in this encounter Plan of Treatment Not on filedocumented as of this encounter Visit Diagnoses Not on filedocumented in this encounter Care Teams Liquid Loader Relationship Specialty Start Date End Date Frederick Cedillo MD PCP - General 05/02/10 09/28/18 documented as of this encounter
--- OUTSIDE RECORDS SUMMARY | 2022-02-28 08:30 | XMS_ITS | Encounter Summary ---
:1975 Author Organization [place] [address] Care Team Providers Name Role Phone Frederick Cedillo MD Primary Care Provider Reason for Referral Consultation (Routine) - Closed Specialty Diagnoses / Procedures Referred By Contact Refer red To Contact Pain Management Diagnoses HNP (herniated nucleus pulposus), lumbar Robert Alvarez MD [facility] [address] [place] [address] SPINE [facility] [address] Fax: Referral ID Status Reason Start Date Expiration Date Visits V isits Requested Authorized [id number] Closed Consult Only 10/04/2011 04/01/2012 1 1 Reason for Visit Reason Comments Other f/u HNP Discuss Surgery Encounter Details Date Type Department Care Team Description 10/04/2011 Office Visit Spine Center at Robert Alvarez HNP (her niated radha Moran MD pulposus), lumbar [facility] (Pr imary Dx) [place], [place] SPINE CENTER [address] [place] [address] [phone] Social History Tobacco Use Types Packs/Day Years Used Date Current Every Day Smoker Cigarettes 0.5 20 Smokeless Tobacco: Never Used Sex Assigned at Date Recorded Not on file documented as of this encounter Last Filed Vital Signs Vital Sign Reading Time Taken Comments Blood Pressure - - Pulse - - Temperature - - Respiratory Rate - - Oxygen Saturation - - Inhaled Oxygen Concentration - - Weight 95.3 kg (210 lb) 10/04/2011 2:09 PM EDT Height 162.6 cm (5' 4) 10/04/2011 2:09 PM EDT Body Mass Index 36.05 10/04/2011 2:09 PM EDT documented in this encounter Progress Notes Robert Alvarez MD - 10/04/2011 2:48 PM EDT INTERVAL HISTORY: Ms. Gibbons returns today after undergoing a left S1 selective nerve root injection on August 26. She notes that this gave her about 50% relief of her left lower extremity pain and the pain generally no longer radiates distal to her knee. She is not having as much low back pain either. She is also starting an antidepressant and feels as though her mood is much improved. 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 While she is not satisfied with her current level of pain control, she notes that it is better than it was. She continues to take high doses of narcotics, including 40 mg of OxyContin twice a day and 20 mg of Percocet. PHYSICAL EXAMINATION: General: The patient is comfortable, no acute distress. Back: She has a well-healed midline incision. Her back is nontender to palpation. Neurologic Exam: She has 4/5 strength in her left peroneals. All other motor groups are 5/5. She has some diminished sensation on the lateral border of the foot posterolateral leg on the left. She has a positive straight leg raise on the left. Her Achilles reflex on the left is diminished compared on the right. IMAGING: Plain films of the lumbar spine were obtained today. These demonstrate no scoliosis or spondylolisthesis. She has loss of disk height at L5-S1. She has no instability on flexion and extension films. Evidence of her prior surgery can be seen with the majority of the L4, and all of the L5 spinous process seem to be removed. I reviewed her MRI from 06/20/2011, which demonstrates postsurgical changes on the right side at L5-S1. On the left, at L5-S1, she has a posterolateral disk herniation compressing the traversing S1 root. ASSESSMENT/PLAN: Ms. Gibbons has improved since I saw her last, but she is still having relatively limiting pain. We had a discussion of treatment options that include further medications, physical therapy, another injection, and left L5-S1 diskectomy. Given that this would be a revision surgery, she is at increased risk for complication including spinal fluid leak and nerve root injury. Given the duration of her symptoms, she is also at increased risk for persistent symptoms. I suggest she might have difficulty with postoperative pain control given the high dose of narcotics she is on at this point. Given these considerations, she would like to try to avoid surgery, especially since she has improved a fair bit since I saw her last. She would like to proceed with another steroid injection, and I will setup another left S1 selective nerve root injection. She says she would like to try decreasing her pain medications she is on, and she will work with her primary doctor, Dr. Cedillo, on this. She said that if she fails to continue to improve following another injection, she will contact me to setup another appointment to discuss treatment further. I also suggested that if she is to have surgery, it may take a long time to get her off thepain medication post-operatively, and that she would have to work with Dr. Cedillo on that also. CC: Frederick Cedillo MD documented in this encounter Plan of Treatment Scheduled Referrals Name Type Priority Associated Diagnoses Order S chedule REFERRAL TO PAIN Outpatient Referral Routine HNP (herniated Or dered: CLINIC nucleus pulposus), 2 lumbar documented as of this encounter Visit Diagnoses Diagnosis HNP (herniated nucleus pulposus), lumbar - Primary Displacement of lumbar intervertebral di sc without myelopathy documented in this encounter Care Teams Director Of Accounts Payable Relationship Specialty Start Date End Date Frederick Cedillo MD PCP - General 05/02/10 09/28/18 documented as of this encounter
--- OUTSIDE RECORDS SUMMARY | 2022-02-28 08:30 | XMS_ITS | Encounter Summary ---
:1975 Author Organization [facility] [place] [address] Care Team Providers Name Role Phone Frederick Cedillo MD Primary Care Provider Encounter Details Date Type Department Care Team Description 08/27/2011 Orders Only Pain Management at Tyler Jacob MD [facility] [place] [address] PAIN CLINIC [phone] [place], [place] [address] (Wo rk) Social History Tobacco Use Types Packs/Day Years Used Date Current Every Day Smoker Cigarettes 1 20 Smokeless Tobacco: Never Used Sex Assigned at Date Recorded Not on file documented as of this encounter Plan of Treatment Not on filedocumented as of this encounter Procedures Procedure Name Priority Date/Time Associated Diagnosis Comme nts FILM LIBRARY Routine 08/27/2011 11:20 AM Results for this STORAGE ONLY PAIN EDT procedure are in CLINIC C ARM the results section. documented in this encounter Results FILM LIBRARY-STORAGE ONLY PAIN CLINIC C-ARM (08/27/2011 11:20 AM EDT) Specimen (Source) Anatomical Collection Method Collection Time Re ceived Time Location / / Volume Laterality 08/27/2011 11:20 AM EDT Narrative RAD - 11/18/2013 2:56 PM EDT This is a non-reportable exam. Procedure Note Israel Rodriguez - 11/18/2013Formatting of t his note might be different from the original. This is a non-reportable exam. Tyler Ley MD G FILM LIBRARY ORDERABLES Performing Organization Address City/State/ZIP Code Phon e Number RAD RAD [address] [place] [address] documented in this encounter Visit Diagnoses Not on filedocumented in this encounter Care Teams Furnace Worker Relationship Specialty Start Date End Date Frederick Cedillo MD PCP - General 05/02/10 09/28/18 documented as of this encounter
--- OUTSIDE RECORDS SUMMARY | 2022-02-28 08:30 | XMS_ITS | Encounter Summary ---
:1975 Author Organization [facility] Address [address] [facility] [place] [address] Care Team Providers Name Role Phone Frederick Cedillo MD Primary Care Provider Encounter Details Date Type Department Care Team Description 10/04/2011 Hospital Encounter XRay at [facility] Lumbar disc herniation [address] [facility] [place] [id number] Social History Tobacco Use Types Packs/Day Years Used Date Current Every Day Smoker Cigarettes 0.5 20 Smokeless Tobacco: Never Used Sex Assigned at Date Recorded Not on file documented as of this encounter Medications at Time of Discharge Medication Sig Dispensed Refills Start Date End Date PREGABALIN (LYRICA ORAL) Take 150 mg by mouth 0 3 times daily. ibuprofen (ADVIL;MOTRIN) Take 800 mg by mouth 0 800 mg tablet as needed. OXYcodone-acetaminophen Take 1 tablet by 0 11/10/2012 (PERCOCET) 7.5-325 mg per mouth 3 times daily. tablet OXYcodone (OXYCONTIN) 40 Take 40 mg by mouth 0 11/10/2012 mg CR tablet every 12 hours. documented as of this encounter Plan of Treatment Not on filedocumented as of this encounter Procedures Procedure Name Priority Date/Time Associated Diagnosis Comme nts XR LUMBAR SPINE 2 Routine 10/04/2011 2:00 PM Lumbar disc Resu lts for this OR 3 VIEWS EDT herniation procedure are i n the results section. documented in this encounter Results XR lumbar spine 2 or 3 views (10/04/2011 2:00 PM EDT) Anatomical Region Laterality Modality L-spine N/A Radiographic Imaging Specimen (Source) Anatomical Collection Method Collection Time Re ceived Time Location / / Volume Laterality 10/04/2011 2:00 PM EDT Narrative 10/04/2011 6:25 PM EDT Examination LSPINE 2 OR 3 VIEWS Clinical History Reason for exam and clinical history: F/ U TO LUMBAR DISC HERNATION, DISCUSS SURGICAL OPS; Comparison MRI of the spine from June 2011. Findings 5 non rib-bearing lumbar type vertebral bodies. ??The L5-S1 and L2-L3 disc spaces are narrowed accompanied by small osteophyte formation. ??There is lower lumbar spine facet arthropathy. ??No sub luxation. ??The pedicles are intact. Impression ? 1. Degenerative disc disease at L 2-L3 and L5-S1 level. ? 2. No subluxation. Procedure Note Ann Marie Bangura MD - 10/04/2011Formatt ing of this note might be different from the original. Examination LSPINE 2 OR 3 VIEWS Clinical History Reason for exam and clinical history: F/ U TO LUMBAR DISC HERNATION, DISCUSS SURGICAL OPS; Comparison MRI of the spine from June 2011. Findings 5 non rib-bearing lumbar type vertebral bodies. The L5-S1 and L2-L3 disc spaces are narrowed accompanied by small osteophyte formation. There is lower lumbar spine facet arthropathy. No sublu xation. The pedicles are intact. Impression 1. Degenerative disc disease at L2-L3 a nd L5-S1 level. 2. No subluxation. Robert Alvarez MD IMG DX ORDERABLES documented in this encounter Visit Diagnoses Diagnosis Lumbar disc herniation Displacement of lumbar intervertebral di sc without myelopathy documented in this encounter Care Teams Sales And Leasing Consultant Relationship Specialty Start Date End Date Frederick Cedillo MD PCP - General 05/02/10 09/28/18 documented as of this encounter
--- NOTE | 2022-02-28 08:45 | DI.RAD_ITS ---
Exam(s) XR PORTABLE CHEST AP EXAM: XR PORTABLE CHEST AP CLINICAL HISTORY: chest pain. TECHNIQUE: 2D digital imaging was performed. COMPARISON: No exams were available for comparison FINDINGS: Single AP portable view. Heart size is upper normal. The mediastinum is not widened. Lungs are clear. No infiltrates nor obvious pleural effusions. IMPRESSION: No acute pulmonary findings on this single AP portable view of the chest. DATA REPOSITORY: RADIATION DOSE DELIVERED:
[2022-02-28] MEDS: LORazepam 1 MG TAB PO (09:25)
--- NOTE | 2022-02-28 09:52 | ED.GENADUL_ITS ---
Discharge Plan Disposition Patient Disposition: [facility] INPATIENT Condition: Critical Discharge Details Chief Complaint: Chest Pain Clinical Impression: Acute non-ST elevation myocardial infarction (NSTEMI) Primary Care Provider: Frederick Jimenez ED Provider: Anjum Garcia Home Meds and New Rx's Prescriptions: No Action albuterol sulfate [ProAir HFA] 8.5 GM HFA aerosol inhaler 2 puff Inhalation Q4H PRN fluoxetine 60 mg tablet 60 mg PO DAILY sumatriptan succinate 50 mg tablet 50 mg PO PRN Mirena 20 mcg/24 hours (6 yrs) 52 mg intrauterine device 1 insert intrauterine ONCE Rx Instructions: as a single dose ibuprofen 800 MG tablet 800 mg PO PRN PRN nicotine 21 MG/24 HR patch 24 hour 21 mg Topical DAILY Label Comments: occassional use buprenorphine-naloxone [Suboxone] 8-2 mg film 2 film sublingual DAILY Label Comments: PLACE TWO FILMS UNDER THE TONGUE EVERY DAY Medical Decision Making 1000 --46-year-old female with history of hyperlipidemia, smoker, positive family history for coronary artery disease, here feeling generally well today, having had some tightness in her chest and arms earlier. Patient is hypertensive. She is anxious. Patient saturating well in no respiratory distress. Patient is reluctant to continue with treatment plan as recommended including diagnostics and further treatment. This has delayed care. After multiple conversations, patient is now agreeable to IV and additional diagnostic work-up as discussed. Concern for ACS. EKG was reviewed and interpreted by me: Please see report, sinus rhythm 92 bpm, Q waves noted inferiorly, mild ST depression in lead I and aVL, V4 and V5, prolonged IL 209. Plan to check troponin. PERC applies. 1040 --chest x-ray was reviewed and interpreted by radiology: FINDINGS: Single AP portable view. Heart size is upper normal.? The mediastinum is not widened. Lungs are clear.? No infiltrates nor obvious pleural effusions. IMPRESSION: No acute pulmonary findings on this single AP portable view of the chest. Labs reviewed and troponin is elevated at 90. Concern for NSTEMI. I called [facility] to request transfer. EKG sent. Awaiting callback. Patient was reassessed. Discussed results with her. Patient is tearful. She is now noting that she does have some persistent left upper arm discomfort. I have initiated treatment with aspirin 325 mg, Plavix 600 mg, heparin bolus and infusion, and will give nitroglycerin sublingual with transition to infusion. 1106 --patient was reassessed by nursing having had nitroglycerin sublingual, now on infusion, arm discomfort has improved from 8-5. BP improved. I spoke with [facility] transfer center, cardiology on-call, discussed ED presentation and course, she will accept the patient on behalf of Dr. Grimm for transfer, pending bed availability. Bed availability may be delayed until tomorrow. Plan to repeat plan to repeat EKG and troponin. 11:30 --repeat EKG shows concerning for dynamic changes, 1.[address] elevation V1 and [address] elevation V2. I called [facility] transfer center to alert them to change and waiting call back. Patient is having continued but improved pain in left arm now 4/10 on nitroglycerin drip at 15 mcg/min. Nursing has been instructed to continue to titrate to reduce pain. 1200 -- [facility] called back and I spoke with the dealer sales rep -she plans to review EKG with her attending but is concerned. Unfortunately [facility] does not h ave any bed capacity to accept. Calling [facility] to request transfer. -- I spoke with [facility] transfer center who notes Case was discussed and EKG reviewed by interventional cardiology who does not feel emergent catheterization is necessary recommends continued treatment for NSTEMI. [facility] dealer sales rep called back noting she had discussed case with her interventional attending who recommends continue to treat for NSTEMI and does not feel emergent catheterization is required. Plan will be for patient to be transferred when bed is available, likely tomorrow morning under the care of Dr. Grimm who is excepting physician. I called and discussed case with Dr. Perez, on-call hospitalist, she will admit the patient to the ICU. 1510 --patient reassessed and remains pain-free on nitroglycerin drip. Repeat EKG was reviewed and interpreted by me: Please see report, ST elevation in V1 and V2 now resolved. Lab Data Lab results reviewed: Yes I reviewed the patient's lab results. HPI General Mode of arrival: ambulatory . Date/Time Provider Initiated Documentation: 02/28/22 08:15 . Limitations to Documentation: no limitations . Information obtained by: patient . HPI Narrative: 46-year-old female with history of opioid dependence, on Suboxone, obesity, smoker, positive maternal family history for cardiac disease at an early age, here today with chief complaint of generally not feeling well. Patient notes she woke up this morning feeling unwell. She notes she had some tightness in her chest and arms. She had some associated diaphoresis. Symptoms started around 7 AM. She has associated anxiety. She denies shortness of breath and dizziness. She does state that she has some generalized abdominal discomfort described as gas and nausea. Related Data Home Medications Medication Instructions Recorded Confirmed ibuprofen 800 mg tablet 800 mg PO PRN PRN 02/16/13 01/26/18 nicotine 21 mg/24 hr daily 21 mg topical DAILY 06/05/13 01/26/18 transdermal patch albuterol sulfate 90 mcg/actuation 2 puff inhalation Q4H PRN 05/17/17 01/26/18 aerosol inhaler (ProAir HFA) fluoxetine 60 mg tablet 60 mg PO DAILY 02/02/21 levonorgestrel 20 mcg/24 hours (7 1 insert intrauterine ONCE 02/02/21 yrs) 52 mg intrauterine device (Mirena) sumatriptan succinate 50 mg tablet 50 mg PO PRN 02/02/21 buprenorphine 8 mg-naloxone 2 mg 2 film sublingual DAILY 02/28/22 02/28/22 sublingual film (Suboxone) Allergies Allergy/AdvReac Type Severity Reaction Status Date / Time fentanyl Allergy Unknown None noted Verified 02/28/22 08:23 on referral Penicillins Allergy Unknown Unknown, Unverified 02/28/22 08:23 happened as a child hydrocodone bitartrate AdvReac Intermediate Nausea Unverified 02/28/22 08:23 [From Vicodin] morphine AdvReac Intermediate FLU LIKE Unverified 02/28/22 08:23 SYMPTOMS General Stated Complaint: Chest Pain YANDY: 3 Review of Systems All systems reviewed & are unremarkable except as noted in HPI and below Constitutional Constitutional: Reports as per HPI and Denies fever(s) Cardiovascular Cardiovascular: Reports as per HPI Comments: tightness earlier, no chest pain now Gastrointestinal Gastrointestinal: Denies abdominal pain and Reports bloating PFSH All Active Problems (Updated 02/28/22 @ 15:13 by Anjum Garcia MD) Acute non-ST elevation myocardial infarction (NSTEMI) (Acute) Screening for colon cancer (Acute) Medical History Cervicalgia Chronic back pain Cyst of skin Depression Ganglion cyst Lumbar radiculopathy Migraine headache Obesity Opioid dependence Sciatica Tobacco use Weakness Surgical History SPINAL SURGERY Social History Smoking/Tobacco Use Status: Current every day Smoking risk assessment performed?: Yes Alcohol Intake: never Drug use: Never Substance use type: does not use Do you feel safe at home: Yes Do you feel safe in your relationship?: Yes Exam Const General: cooperative and no acute distress HENMT Mouth: moist mucous membranes Eyes Conjunctivae: normal conjunctivae Sclera: normal sclerae Neck Neck: trachea midline and supple Resp Auscultation: clear to auscultation bilaterally, no rales, no rhonchi and no wheezes Cardio Rate: regular rate and not tachycardic Rhythm: regular rhythm GI Palpation: soft, not firm, no guarding, no masses, not rigid and nontender Skin General skin exam: no rashes or lesions noted Neuro General: patient alert and patient awake Extrem General: no pedal edema, no calf tenderness and no edema Psych Appearance: grossly normal Mental Status: mental status grossly normal Affect: anxious affect Course Vital Signs Vital signs: Vital Signs Pulse 96 H 02/28/22 08:25 Blood Pressure 171/114 H 02/28/22 08:25 Temperature 36.5 C 02/28/22 08:27 Temperature Source Oral 02/28/22 08:27 Pulse 87 02/28/22 08:31 Pulse 89 02/28/22 08:40 Respiratory Rate 13 02/28/22 08:40 Respiratory Effort 02/28/22 08:28 Respiratory Depth Normal 02/28/22 08:28 Blood Pressure 177/97 H 02/28/22 08:31 Blood Pressure Mean 118 02/28/22 08:31 Pulse Oximetry 95 02/28/22 08:27 Critical Care Time Critical Care Time Critical Care Time: Yes Total Critical Care Time: 60 Attestation: I spent greater than 60 minutes addressing this patient's immediate life threats. Please see MDM section of note. This time was spent engaged in work directly related to the patient's care, exclusive of separate procedures, and failure to initiate these interventions would have likely resulted in clinically significant or life threatening deterioration in the patient's condition.
[2022-02-28 10:01] LABS: Abs Immature Grans 0.04 10^3/uL (0.0-0.06); Absolute Basophil Count 0.06 10^3/uL (0.0-0.2); Absolute Eosinophil Count 0.07 10^3/uL (0.0-0.7); Absolute Lymphocyte Count 2.78 10^3/uL (1.2-3.4); Absolute Monocyte Count 0.51 10^3/uL (0.1-0.8); Absolute Neutrophil Count 8.78 10^3/uL (1.2-6.7); Basophils % 0.5; Eosinophils % 0.6; HCT 47.9 % (36.0-46.0); HGB 15.5 g/dL (11.2-15.7); Immature Grans % 0.3; Lymphocytes % 22.7; MCH 28.2 pg (27.0-33.0); MCHC 32.4 % (32.0-36.0); MCV 87 fL (80-95); MPV 9.9 fL (8.0-11.0); Monocytes % 4.2; Neutrophils % 71.7; Platelet Count 286 10^3/uL (130-400); RDW-SD 41.1 fL; WBC 12.24 10^3/uL (4.4-10.8)
[2022-02-28] MEDS: Nicotine 14 MG/24 HR PATCH TD (10:02)
[2022-02-28 10:13] LABS: PTT Activated 24.3 sec (21.0-27.5)
[2022-02-28 10:20] LABS: ALT 36 U/L (14-59); AST 17 U/L (15-37); Albumin 3.4 g/dL (3.4-5.0); Alkaline Phosphatase 97 U/L (46-116); Anion Gap 8.4 mmol/L (3-11); BUN 20 mg/dL (7-18); Bilirubin, Total 0.1 mg/dL (0.2-1.0); CO2 26.6 mmol/L (21.0-32.0); CREATININE 1.1 mg/dL (0.55-1.02); Calcium 9.8 mg/dL (8.5-10.1); Chloride 101 mmol/L (98-107); Estimated GFR 61.98 (mL/min/1.73m2); Glucose 185 mg/dL (74-106); Magnesium 1.9 mg/dL (1.8-2.4); Potassium 4.5 mmol/L (3.5-5.1); Sodium 136 mmol/L (136-145); Total Protein 7.8 g/dL (6.4-8.2)
[2022-02-28 10:22] LABS: Troponin I 94 ng/L (<or=60)
[2022-02-28] MEDS: Aspirin 325 MG TAB PO (10:31)
[2022-02-28] MEDS: Clopidogrel 300 MG TAB 600 MG PO (10:32)
[2022-02-28] MEDS: nitroGLYcerin 0.4 MG TAB SL ×3 (10:52→11:03)
[2022-02-28] MEDS: nitroGLYcerin in D5W 50 MG/250 ML BTL IV (10:53)
[2022-02-28 10:57] LABS: Source Nasal/Nares
--- NOTE | 2022-02-28 11:00 | RT.EKG_ITS ---
APPROVED REPORT Exam: Resting ECG Reason for Exam: chest pain Patient Location: E HR:79 bpm ECG Measurements Heart Rate 79 AXIS [place] 172 P 67 QRSd 100 QRS -17 QT 366 T -52 QTc 421 Conclusion Sinus rhythm...normal P axis, V-rate 60- 99 Inferior infarct, age indeterminate...Q>35mS, T neg, II III aVF Borderline ST elevation, anterior leads...ST >0.15mV in V1-V4 dynamic change with st elev 1.5min V1 Abnormal Electrocardiogram
[2022-02-28 11:35] LABS: COVID-19 PCR Negative (Negative)
[2022-02-28 11:47] LABS: Troponin I 398 ng/L (<or=60)
--- NOTE | 2022-02-28 12:02 | NUR.NOTE ---
patient states the only medication she is currently taking is the suboxone Nursing Note:
[2022-02-28 13:26] LABS: *AMPHETAMINES SCREEN URINE Negative (Negative); *BARBITURATES SCREEN URINE Negative (Negative); *BENZODIAZEPINES SCREEN URINE Negative (Negative); Cannabinoids THC Negative (Negative); Cocaine Screen,Urine Positive (Negative); METHADONE URINE SCREEN Negative (Negative); OPIATES URINE SCREEN Negative (Negative)
[2022-02-28 13:28] LABS: Tricyclic Antidepressants Negative (Negative)
[2022-02-28 14:40] LABS: Troponin I 2994 ng/L (<or=60)
--- NOTE | 2022-02-28 14:45 | RT.EKG_ITS ---
APPROVED REPORT Exam: Resting ECG Reason for Exam: pain Patient Location: E HR:78 bpm ECG Measurements Heart Rate 78 AXIS [place] 140 P 60 QRSd 91 QRS -25 QT 360 T -14 QTc 412 Conclusion Sinus rhythm...normal P axis, V-rate 60- 99 Inferior infarct, old...Q >35mS, II III aVF st elevation improved
--- NOTE | 2022-02-28 15:59 | HPE_ITS ---
Date of service: 02/28/22 Time of Service: 15:59 Assessment and Plan Assessment and plan (1) Acute non-ST elevation myocardial infarction (NSTEMI): Status: Acute Assessment and plan: Continue aspirin, plavix, heparin gtt, nitroglycerin gtt. Monitor in the ICU. Await transfer to [facility] cardiology for a cardiac cath. NPO after midnight. (2) Cocaine abuse: Status: Acute Assessment and plan: Likely related to the acute OH as could have induced coronary spasm. Encourage to quit. (3) Opioid dependence: Assessment and plan: Continue suboxone (4) Tobacco use: Assessment and plan: Providen nicotine replacement (5) Discharge planning issues: Status: Acute Assessment and plan: Full code Admit to ICU. Total Critical Care Time 40 minutes History of Present Illness History of Present Illness Chief Complaint: Chest pain Narrative: Ms Gibbons is a 46 year old female with PMHx of cocaine abuse, opioid abuse on suboxone, tobacco abuse, hyperlipidemia, positive family history for CAD, who presented to [facility] ED today c/o chest tightness radiating to her L neck, arm and across her chest when making breakfast this morning. The patient felt anxious, not right, but denied dizziness, palpitations, shortness of breath. She did have a sensation of heartburn last night and today. She states that she last used cocaine 3-4 days ago (smoked it). Her UDS was positive for cocaine in the ER. She has had this happen before and felt it was a panic attack. Today, she put a pulse oximeter on and saw that her HR was in 120s, which scared her, so she came to the ER. She did have evidence of positive troponin (94->398) and ST depressions in leads I, AVL, V4, V5 with ST elevations in V1 and V2. The patient was started on aspirin, plavix, heparin and nitroglycerin drips with resolution of chest pain. Her third troponin was 2994; however, her EKG abnormalities have actually improved on a repeat study. The patient was pre-accepted by Dr Grimm for transfer to [facility] with a bed being available tomorrow. Review of Systems All systems reviewed & are unremarkable except as noted in HPI and below PFSH All Active Problems (Updated 02/28/22 @ 16:16 by Toshia Perez MD) Discharge planning issues (Acute) Cocaine abuse (Acute) Acute non-ST elevation myocardial infarction (NSTEMI) (Acute) Screening for colon cancer (Acute) Medical History Cervicalgia Chronic back pain Cyst of skin Depression Ganglion cyst Lumbar radiculopathy Migraine headache Obesity Opioid dependence Sciatica Tobacco use Weakness Surgical History SPINAL SURGERY Family History (Updated 02/28/22 @ 16:42 by Toshia Perez MD) Mother Heart disease Diabetes Cancer cervical cancer Maternal Grandmother Heart disease Maternal Grandfather Heart disease Maternal Aunt Stroke Cancer breast cancer Brother Diabetes Social History Smoking/Tobacco Use Status: Current every day Smoking risk assessment performed?: Yes Alcohol Intake: never Drug use: Never Substance use type: does not use Do you feel safe at home: Yes Do you feel safe in your relationship?: Yes Meds Allergies and Home Medications Allergies Allergy/AdvReac Type Severity Reaction Status Date / Time fentanyl Allergy Unknown None noted Verified 02/28/22 08:23 on referral Penicillins Allergy Unknown Unknown, Unverified 02/28/22 08:23 happened as a child hydrocodone bitartrate AdvReac Intermediate Nausea Unverified 02/28/22 08:23 [From Vicodin] morphine AdvReac Intermediate FLU LIKE Unverified 02/28/22 08:23 SYMPTOMS Home Medications Medication Instructions Recorded Confirmed Type ibuprofen 800 mg tablet 800 mg PO PRN PRN 02/16/13 01/26/18 History nicotine 21 mg/24 hr daily 21 mg topical DAILY 06/05/13 01/26/18 History transdermal patch albuterol sulfate 90 mcg/actuation 2 puff inhalation Q4H PRN 05/17/17 01/26/18 History aerosol inhaler (ProAir HFA) fluoxetine 60 mg tablet 60 mg PO DAILY 02/02/21 History levonorgestrel 20 mcg/24 hours (7 1 insert intrauterine ONCE 02/02/21 History yrs) 52 mg intrauterine device (Mirena) sumatriptan succinate 50 mg tablet 50 mg PO PRN 02/02/21 History buprenorphine 8 mg-naloxone 2 mg 2 film sublingual DAILY 09/21/22 09/21/22 History sublingual film (Suboxone) Exam Narrative Exam Narrative: General: Pleasant middle-aged female, anxious, A&Ox3, NAD Neurological: A&Ox3, no focal deficits Psychiatric: Anxious Skin: no visible bruises/rashes HEENT: Atraumatic, normocephalic, EOMI, MMM, clear oropharynx, no submandibular or cervical lymphadenopathy, no goiter or JVD Cardiovascular: RRR, no m/r/g Lungs: rhonchi on expiration B Gastrointestinal: soft, nontender, nondistended Genitourinary: deferred Extremities: +1 BLE edema, no c/c. Results Imaging Additional studies: CXR: No acute pulmonary findings on this single AP portable view of the chest. EKG #1: ST, HR 92, ST depressions in leads 1, II, V4-V6, St elevations V1, V2. EKG #2: Improvement in ST depressions in leads I, II, V4-V6; persistent elevations in V1 and V2. EKG #3: SR, HR 78, resolution of ST depressions/ST elevations seen on prior EKGs. Labs Result diagrams: 02/28/22 09:50 02/28/22 09:50 Labs: Laboratory Results - last 24 hr 02/28/22 02/28/22 02/28/22 09:50 09:50 09:50 WBC 12.24 H RBC 5.50 H Hgb 15.5 Hct 47.9 H MCV 87 MCH 28.2 MCHC 32.4 RDW 13.0 Plt Count 286 MPV 9.9 Immature Gran % 0.3 Neutrophils % 71.7 Lymphocytes % 22.7 Monocytes % 4.2 Eosinophils % 0.6 Basophils % 0.5 Nucleated RBC % 0.0 Absolute Neutrophils 8.78 H Absolute Lymphocytes 2.78 Absolute Monocytes 0.51 Absolute Eosinophils 0.07 Absolute Basophils 0.06 APTT 24.3 Sodium 136 Potassium 4.5 Chloride 101 Carbon Dioxide 26.6 Anion Gap 8.4 BUN 20 H Creatinine 1.1 H Est GFR (CKD-EPI 2020) 61.98 Glucose 185 H Calcium 9.8 Magnesium 1.9 Total Bilirubin 0.1 L AST 17 ALT 36 Alkaline Phosphatase 97 Troponin I 94 H* Total Protein 7.8 Albumin 3.4 Urine Opiates Screen Urine Methadone Screen Ur Barbiturates Screen Ur Tricyclics Screen Ur Amphetamines Screen U Benzodiazepines Scrn Urine Cocaine Screen Ur THC Screen COVID-19 Source SARS-CoV-2 (PCR) 02/28/22 02/28/22 02/28/22 10:45 11:10 12:48 WBC RBC Hgb Hct MCV MCH MCHC RDW Plt Count MPV Immature Gran % Neutrophils % Lymphocytes % Monocytes % Eosinophils % Basophils % Nucleated RBC % Absolute Neutrophils Absolute Lymphocytes Absolute Monocytes Absolute Eosinophils Absolute Basophils APTT Sodium Potassium Chloride Carbon Dioxide Anion Gap BUN Creatinine Est GFR (CKD-EPI 2020) Glucose Calcium Magnesium Total Bilirubin AST ALT Alkaline Phosphatase Troponin I 398 H* Total Protein Albumin Urine Opiates Screen Negative Urine Methadone Screen Negative Ur Barbiturates Screen Negative Ur Tricyclics Screen Negative Ur Amphetamines Screen Negative U Benzodiazepines Scrn Negative Urine Cocaine Screen Positive A Ur THC Screen Negative COVID-19 Source Nasal/Nares SARS-CoV-2 (PCR) Negative 02/28/22 14:07 WBC RBC Hgb Hct MCV MCH MCHC RDW Plt Count MPV Immature Gran % Neutrophils % Lymphocytes % Monocytes % Eosinophils % Basophils % Nucleated RBC % Absolute Neutrophils Absolute Lymphocytes Absolute Monocytes Absolute Eosinophils Absolute Basophils APTT Sodium Potassium Chloride Carbon Dioxide Anion Gap BUN Creatinine Est GFR (CKD-EPI 2020) Glucose Calcium Magnesium Total Bilirubin AST ALT Alkaline Phosphatase Troponin I 2994 H* Total Protein Albumin Urine Opiates Screen Urine Methadone Screen Ur Barbiturates Screen Ur Tricyclics Screen Ur Amphetamines Screen U Benzodiazepines Scrn Urine Cocaine Screen Ur THC Screen COVID-19 Source SARS-CoV-2 (PCR) Last Vital Signs Temp 36.5 C 02/28/22 14:40 Pulse 77 02/28/22 15:31 Resp 24 02/28/22 15:31 BP 141/85 H 02/28/22 15:31 Pulse Ox 95 02/28/22 14:40
[2022-02-28 17:03] LABS: Troponin I 10039 ng/L (<or=60)
[2022-02-28] MEDS: Buprenorphine/Naloxone 8 mg/2 mg FILM 1 EACH SL (17:15)
[2022-02-28] MEDS: Pantoprazole 40 MG VIAL IVP (17:15)
--- NOTE | 2022-02-28 18:15 | RT.EKG_ITS ---
APPROVED REPORT Exam: Resting ECG Reason for Exam: NSTEMI Patient Location: I HR:86 bpm ECG Measurements Heart Rate 86 AXIS [place] 134 P 67 QRSd 100 QRS -24 QT 352 T 1 QTc 421 Conclusion Sinus rhythm...normal P axis, V-rate 50- 99 Inferior infarct, old...Q >35mS, II III aVF
[2022-02-28 19:26] LABS: PTT Activated 26.3 sec (21.0-27.5)
[2022-02-28] MEDS: Zolpidem 5 MG TAB PO (21:48)
[2022-03-01] VITALS (39 sets, daily range): BP systolic 91–137; BP diastolic 48–120; PULSE 74–108; RESP 9–26; TEMP 36.4–37; O2SAT 90–96
--- NOTE | 2022-03-01 01:27 | NUR.NOTE ---
0115-pt had 13 beat run VT on monitor. Asymptomatic. Hep gtt and Ntg gtt infusing as ordered. call placed to Dr Roberts. No reply yet.
--- NOTE | 2022-03-01 01:46 | NUR.NOTE ---
0145-Dr Torres returned call. Made aware of VT. Orders recieved.
--- NOTE | 2022-03-01 06:00 | RT.EKG_ITS ---
APPROVED REPORT Exam: Resting ECG Reason for Exam: elevated troponin, VT Patient Location: I HR:105 bpm ECG Measurements Heart Rate 105 AXIS [place] 182 P 19 QRSd 97 QRS -27 QT 338 T -5 QTc 447 Conclusion Sinus tachycardia...rate> 99 Inferior infarct, old...Q >35mS, II III aVF
[2022-03-01 06:28] LABS: Abs Immature Grans 0.06 10^3/uL (0.0-0.06); Absolute Basophil Count 0.04 10^3/uL (0.0-0.2); Absolute Lymphocyte Count 4.28 10^3/uL (1.2-3.4); Basophils % 0.3; Eosinophils % 0.8; HCT 42.5 % (36.0-46.0); HGB 14.3 g/dL (11.2-15.7); Immature Grans % 0.5; Lymphocytes % 34.1; MCH 28.9 pg (27.0-33.0); MCHC 33.6 % (32.0-36.0); MCV 86 fL (80-95); MPV 10.1 fL (8.0-11.0); Monocytes % 5.3; Platelet Count 286 10^3/uL (130-400); RBC 4.95 10^6/uL (3.93-5.22); RDW 13.2 % (11.7-14.6); RDW-SD 41.2 fL; WBC 12.54 10^3/uL (4.4-10.8)
[2022-03-01 06:31] LABS: Absolute Monocyte Count 0.66 10^3/uL (0.1-0.8)
[2022-03-01] MEDS: Acetaminophen 325 MG TAB PO (06:32)
[2022-03-01 06:46] LABS: Anion Gap 9.5 mmol/L (3-11); BUN 22 mg/dL (7-18); CO2 25.5 mmol/L (21.0-32.0); CREATININE 1.2 mg/dL (0.55-1.02); Calcium 8.6 mg/dL (8.5-10.1); Calculated LDL 105 mg/dL (<100); Chloride 100 mmol/L (98-107); Cholesterol 193 mg/dL (<200); Estimated GFR 55.84 (mL/min/1.73m2); Glucose 209 mg/dL (74-106); HDL Cholesterol 44 mg/dL (40-60); Magnesium 1.7 mg/dL (1.8-2.4); Potassium 4.1 mmol/L (3.5-5.1); Sodium 135 mmol/L (136-145); Triglyceride 223 mg/dL (<150)
[2022-03-01 08:12] LABS: Lab Add On Test DONE
[2022-03-01 08:29] LABS: Hemoglobin A1C 7.5 % (<5.7)
[2022-03-01] MEDS: Aspirin E.C. 81 MG TABEC PO (08:34)
[2022-03-01] MEDS: MAGNESIUM SULFATE 2 GM/50 ML BAG IVPB (08:34)
[2022-03-01] MEDS: Clopidogrel 75 MG TAB PO (08:34)
[2022-03-01] MEDS: Buprenorphine/Naloxone 8 mg/2 mg FILM 2 EACH SL (08:37)
--- NOTE | 2022-03-01 08:40 | DI.US_ITS ---
APPROVED REPORT EXAM: Comprehensive 2D, Doppler, and color-flow Echocardiogram Patient Location: In-Patient Room/Bed: [id number] Indications: NSTEMI Other Information Study Quality: Fair. Technically limited study due to body habitus, inability to position patient exa m done supine bedside. Conclusion Technically difficult study Normal left ventricular wall thickness and chamber size. Estimated ejection fraction is 55 to 60%. No segmental wall motion abnormalities are noted Right ventricle is not well visualized Both atria are normal in size Mildly sclerotic trileaflet aortic valve without stenosis or regurgitation Normal mitral valve with trace regurgitation Wall motion Left Ventricle The left ventricle is normal size. The overall left ventricular systolic function appears normal. The re is normal left ventricular wall thickness. There is no ventricular septal defect visualized. LVEF is 56%. Right Ventricle Right ventricle is not well visualized. Right ventricular systolic function could not be assessed. Atria The left atrium size is normal. The right atrium size is normal. The interatrial septum is intact wit h no evidence for an atrial septal defect. Aortic Valve The aortic valve is mildly sclerotic Aortic valve is trileaflet. There is no aortic valvular stenosis . Mitral Valve The mitral valve is normal in structure. No evidence of mitral valve stenosis. Trace mitral regurgita tion. Tricuspid Valve The tricuspid valve is normal in structure. There is no tricuspid valve stenosis. Pulmonic Valve Pulmonic valve is not well visualized. There is no pulmonic valvular stenosis. There is no pulmonic v alvular regurgitation. Great Vessels The aortic root is normal in size. The ascending aorta is normal in size. Ascending aorta is not well visualized. Due to poor image quality, the IVC could not be assessed. Pericardium There is no pericardial effusion. 2D Dimensions IVSD d PLAX 0.95 cm F: 0.6-1.0 LVPW d PLAX 0.95 cm F: 0.6 - 1.0 LVID d PLAX 4.62 cm F: 3.8 - 5.2 LVDs 3.25 cm F: 2.2 - 3.5 Ao Root d 2.53 cm F: 2.7 - 3.3 Ao Asc Diam d 3.15 cm F: 2.3 - 3.1 LV EF Teichholz 56.0 % FS 29.10 % M-Mode TAPSE 2.09 cm (M/F) >1.7 LV Diastology MV E' medial 0.081 (>0.07 m/s) E/A Ratio 1.1 LV E/e MED 8.10 (<14) MV E Vmax 0.66 (0.4-1.3 m/s) MV E' lateral 0.066 (>0.1 m/s) MV A Vmax 0.60 (0.4-1.3 m/s) LV E/e LAT 9.90 (<14) MV E/A Ratio 1.05 MV E/E' medial 8.13 MV E/E' lateral 9.93 Aortic Valve LVOT Area 3.02 cm2 AoV Area Vmax 1.89 cm2 LVOT Vmax 0.91 m/s AoV Area/ BSA (Vmax) 0.88 cm2/m2 LVOT Mean Henry. 0.52 m/s SHOBHA Mean Henry. 1.50 cm2 LVOT Peak Grad 3.3 mmHg SHOBHA Mean Henry. Index 0.70 cm2/m2 LVOT Mean Grad 1.4 mmHg LVOT VTI 0.127 m LVOT Diam s 1.95 cm AoV Vmax 1.46 m/s Velocity Ratio 0.62 AoV Mean Henry. 1.06 m/s AoV Peak Grad 8.6 mmHg LVOT SV 38.52 mL AoV Mean Grad 5.0 mmHg AoV VTI 0.192 m AoV Area VTI 2.01 cm2 AoV Area/ BSA (VTI) 0.93 cm/m2 Mitral Valve MV DT 269 (160-240 msec) MV PHT 78 msec MV Area PHT 2.82 cm2 Pulmonary Valve PV Vmax 0.95 (0.5-1.5 m/s) RVOT Peak Gr. 2.57 mmHg PV Peak Grad 3.6 mmHg RVOT Mean Gr. 1.15 mmHg PV Mean Grad 1.9 mmHg RVOT VTI 0.135 m PV VTI 0.144 m RVOT Vmax 0.80 m/s
[2022-03-01] MEDS: Insulin Aspart 300 UNITS/3 ML PEN SC (08:42)
[2022-03-01 09:28] LABS: Procalcitonin < 0.1 ng/mL
--- NOTE | 2022-03-01 11:24 | PDOC.CMIN ---
- If Service Date Differs Date of service: 03/01/22 Time of Service: 11:24 Care Management Initial Assess REASON FOR HOSPITALIZATION:: nstemi PAST MEDICAL HISTORY/PAST SURGICAL HISTORY:: All Active Problems (Updated 02/28/22 @ 16:16 by Toshia Perez MD). Discharge planning issues (Acute). Cocaine abuse (Acute). Acute non-ST elevation myocardial infarction (NSTEMI) (Acute). Screening for colon cancer (Acute). Medical History . Cervicalgia. Chronic back pain. Cyst of skin. Depression. Ganglion cyst. Lumbar radiculopathy. Migraine headache. Obesity. Opioid dependence. Sciatica. Tobacco use. Weakness. Surgical History . SPINAL SURGERY PREVIOUS FUNCTIONAL STATUS/SOCIAL/FAMILY SUPPORTS:: Cherelle lives in a single family home in [place], [place] with her 14 year old son and an elderly gentleman that she cares for. 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 Cherelle also has a daughter Ashly and a sister Lucero that she is close to. Cherelle is independent at baseline in the community. CURRENT FUNCTIONAL STATUS:: Cherelle was sitting up in bed when CM met with her. She was teary and frustrated because she cannot eat (NPO) for a possible cardiac cath later in the day if she gets a bed [place] [facility] Cherelle verbalized not understanding why [facility] [place] unable to definitively give a time that the transfer could take place. Cherelle requested assistance with completing advanced directives which CM provided. The completed document was sent to the AD Registry, Access and Dr. Jimenez's office. Cherelle was given a copy for herself (original) as well as copies for her sister and daughter who are named as her HCAs. ADVANCE DIRECTIVES:: completed today. Sister Lucero [facility] and daughter Ashly alternate. Has patient been provided with info about the portal/API?: Yes Did the patient sign up for the portal?: No CODE STATUS:: Full Code INSURANCE COVERAGE / FINANCIAL ISSUES:: [facility] healthcare Plans [place] CURRENT HOME/COMMUNITY SERVICES/EQUIPMENT:: none PRIMARY CARE PHYSICIAN:: Dr. Frederick Jimenez PATIENT/FAMILY EDUCATION NEEDS:: Review of discharge instructions including activity, limitations, medications and Ask me Three TRANSPORTATION:: via ambulance coordinated by nursing supervisor stave cutting PLAN:: Cherelle is waiting for a bed at [facility] with a possible cardiac cath later today. She has been accepted by .She will transport via EMS coordinated by nursing supervisor stave cutting.
--- NOTE | 2022-03-01 13:01 | W.INDIABCONS ---
Date of service: 03/01/22 Time of Service: 13:02 Diabetes Inpatient Consult Reason for Visit: diabetes eduction DESCRIPTION/ASSESSMENT: Cherelle was alseep at time of visit. ICU nurses report being transfered today and not appropriate for teaching at this time. 46 year old female admitted with NSTEMI s/p cocaine use. A1C: 7.5% indicating new diagnosis of diabetes. Medical chart indicates has gained over 70 lbs in last couple of years. BMI 45 indicates morbid obesity. PLAN: will be available prn Time Spent in Nutritional Counseling and Treatment: 0
--- NOTE | 2022-03-01 14:15 | DSE_ITS ---
Date of service: 03/01/22 Time of Service: 14:15 DS: Diagnosis Discharge Diagnosis (1) Acute non-ST elevation myocardial infarction (NSTEMI): Status: Acute (2) Cocaine abuse: Status: Acute (3) Opioid dependence: (4) Tobacco use: (5) Ventricular tachycardia (paroxysmal): Status: Acute (6) Hypomagnesemia: Status: Acute (7) Non-insulin dependent diabetes mellitus: Status: Acute (8) Obesity, morbid, BMI 40.0-49.9: Status: Acute Discharge Plan Disposition Patient Disposition: [facility] Condition: Critical Discharge Details Reason For Visit: NSTEMI Admit Date/Time: 02/28/22 13:01 Admit Provider: Toshia Perez Attending Provider: Toshia Perez Primary Care Provider: Frederick Jimenez [place] [facility] Hospital Course: Ms Gibbons is a 46 year old female with PMHx of prediabetes, cocaine abuse, tobacco abuse, opioid abuse on suboxone, obesity with BMI of 45.0 kg/m2, who was a patient in [facility] ICU under the hospitalist service while awaiting a bed at [facility] on their cardiology service, having presented to [facility] with L-sided chest discomfort radiating to her L jaw, arm, and to the right across her chest, as well as symptoms of GERD. She did have a positive urine drug screen for cocaine. Her initial EKGs showed ST elevations in V1 and [address] depressions in leads I, II, V4-V6. High sensitivity Troponin I trend has been 94->398-> 2994->95319->46363->07645->08300->42559. She is being treated with aspirin, plavix, atorvastatin, heparin drip, nitroglycerin drip in anticipation of transfer to [facility] cardiology where she was accepted for an evaluation for a cardiac cath, with bed availability pending for today. Her accepting attending is Dr Manzo. The patient did have several runs of nonsustained Vtach while asleep as well as a run of 13 beats and 17 beats. She has not had recurrences of Vtach when awake. SARANYA is suspected. Echocardiogram was done. It was a technically difficult study. It shows LVEF of 55-60%, no segmental wall motion, without any significant valvular disease. The patient is NPO. She is stable for transfer and agreeable to transfer. Total Critical Care Time on day of transfer is 40 minutes. Please, look at MAR for list of inpatient medications. The list of medications below reflects outpatient prescriptions. Home Meds and New Rx's Prescriptions: No Action albuterol sulfate [ProAir HFA] 8.5 GM HFA aerosol inhaler 2 puff Inhalation Q4H PRN buprenorphine-naloxone [Suboxone] 8-2 mg film 2 film sublingual DAILY Label Comments: PLACE TWO FILMS UNDER THE TONGUE EVERY DAY Discharge Instructions Referrals: Frederick Jimenez [Primary Care Provider] - Activity:: OOB to chair Diet:: NPO Discharge Orders Discharge Orders: Discharge Order (Routine); Ordered 03/01/22 Ordered By: Toshia Perez DS: Summary Time Spent with Patient providing and/or coordinating discharge services: Greater than 30 minutes Status at Discharge Functional status at discharge: independent ambulation Overall status at discharge: patient is progressing back to baseline Mental Status: mental status grossly normal Speech and Movement: speech and movement normal Mood: congruent mood Affect: normal affect Exam Narrative Exam Narrative: General: Pleasant middle-aged female, anxious, A&Ox3, NAD Neurological: A&Ox3, no focal deficits Psychiatric: Anxious Skin: no visible bruises/rashes HEENT: Atraumatic, normocephalic, EOMI, MMM, clear oropharynx, no submandibular or cervical lymphadenopathy, no goiter or JVD Cardiovascular: RRR, no m/r/g Lungs: rhonchi on expiration B Gastrointestinal: soft, nontender, nondistended Genitourinary: deferred Extremities: +1 BLE edema, no c/c. Psych Mental Status: mental status grossly normal Speech and Movement: speech and movement normal Mood: congruent mood Affect: normal affect DS: Data Vitals/I&O Vitals and I&O: Vital Signs Temperature 36.4 C L 03/01/22 08:00 Temperature Source Temporal Artery Scan 03/01/22 08:00 Pulse 81 03/01/22 14:01 Pulse 86 03/01/22 14:01 Respiratory Rate 23 03/01/22 14:01 Respiratory Effort Short of Breath 03/01/22 08:00 Respiratory Depth Normal 03/01/22 08:00 Respiratory Pattern Normal 03/01/22 08:00 Blood Pressure 108/68 03/01/22 14:01 Blood Pressure Mean 75 03/01/22 14:01 Blood Pressure Position Supine 03/01/22 08:00 Pulse Oximetry 94 03/01/22 14:01 Oxygen Delivery Method Room Air 03/01/22 08:00 Oxygen Flow Rate 0 03/01/22 08:00 Pain Level 0 03/01/22 08:00 Intake & Output 02/28/22 03/01/22 03/01/22 23:59 11:59 23:59 Intake Total 1105.817 / 1597.192 675.967 / 675.967 Output Total 850 / 850 925 / 1100 175 / 1100 Balance 255.817 / 747.192 -249.033 / -424.033 -175 / -424.033 Weight 113.398 kg 118.8 kg Intake: IV 105.817 / 117.192 195.967 / 195.967 Oral 1000 / 1480 480 / 480 Output: Urine 850 / 850 925 / 1100 175 / 1100 Other: Urine Color Yellow Yellow Pale Urine Appearance Clear Clear Clear Urine Odor Normal None None Voiding Methods Bedside Commode Bedside Commode Data Completed and Pending Completed studies during hospitalization [Text1]: CXR: No acute pulmonary findings on this single AP portable view of the chest. Echo; Technically difficult study Normal left ventricular wall thickness and chamber size.? Estimated ejection fraction is 55 to 60%.? No segmental wall motion abnormalities are noted Right ventricle is not well visualized Both atria are normal in size Mildly sclerotic trileaflet aortic valve without stenosis or regurgitation Normal mitral valve with trace regurgitation Labs on day of discharge: Labs from last 24 hours 03/01/22 03/01/22 03/01/22 Unknown Unknown 11:20 WBC RBC Hgb Hct MCV MCH MCHC RDW Plt Count MPV Immature Gran % Neutrophils % Lymphocytes % Monocytes % Eosinophils % Basophils % Nucleated RBC % Absolute Neutrophils Absolute Lymphocytes Absolute Monocytes Absolute Eosinophils Absolute Basophils APTT Sodium Potassium Chloride Carbon Dioxide Anion Gap BUN Creatinine Est GFR (CKD-EPI 2020) Glucose Hemoglobin A1c [place] [address] H* Triglycerides Total Cholesterol LDL Cholesterol, Calc HDL Cholesterol Procalcitonin Add-On Test Request DONE Cancelled 03/01/22 03/01/22 03/01/22 08:30 08:08 06:05 WBC 12.54 H RBC 4.95 Hgb 14.3 Hct 42.5 MCV 86 MCH 28.9 MCHC 33.6 RDW 13.2 Plt Count 286 MPV 10.1 Immature Gran % 0.5 Neutrophils % 59.0 Lymphocytes % 34.1 Monocytes % 5.3 Eosinophils % 0.8 Basophils % 0.3 Nucleated RBC % 0.0 Absolute Neutrophils 7.40 H Absolute Lymphocytes 4.28 H Absolute Monocytes 0.66 Absolute Eosinophils 0.10 Absolute Basophils 0.04 APTT Sodium Potassium Chloride Carbon Dioxide Anion Gap BUN Creatinine Est GFR (CKD-EPI 2020) Glucose Hemoglobin A1c 7.5 H Calcium Magnesium Troponin I Triglycerides Total Cholesterol LDL Cholesterol, Calc HDL Cholesterol Procalcitonin < 0.1 Add-On Test Request 03/01/22 03/01/22 03/01/22 06:05 02:25 02:25 WBC RBC Hgb Hct MCV MCH MCHC RDW Plt Count MPV Immature Gran % Neutrophils % Lymphocytes % Monocytes % Eosinophils % Basophils % Nucleated RBC % Absolute Neutrophils Absolute Lymphocytes Absolute Monocytes Absolute Eosinophils Absolute Basophils APTT 40.0 H Sodium 135 L Potassium 4.1 Chloride 100 Carbon Dioxide 25.5 Anion Gap 9.5 BUN 22 H Creatinine 1.2 H Est GFR (CKD-EPI 2020) 55.84 Glucose 209 H Hemoglobin A1c Calcium 8.6 Magnesium 1.7 L [place]roponin I [address] H* 28835 H* Triglycerides 223 H Total Cholesterol 193 LDL Cholesterol, Calc 105 H HDL Cholesterol 44 Procalcitonin Add-On Test Request 02/28/22 02/28/22 02/28/22 22:10 19:00 16:30 WBC RBC Hgb Hct MCV MCH MCHC RDW Plt Count MPV Immature Gran % Neutrophils % Lymphocytes % Monocytes % Eosinophils % Basophils % Nucleated RBC % Absolute Neutrophils Absolute Lymphocytes Absolute Monocytes Absolute Eosinophils Absolute Basophils APTT 26.3 Sodium Potassium Chloride Carbon Dioxide Anion Gap BUN Creatinine Est GFR (CKD-EPI 2020) Glucose Hemoglobin A1c Calcium Magnesium Troponin I [address] H* 64447 H* Triglycerides Total Cholesterol LDL Cholesterol, Calc HDL Cholesterol Procalcitonin Add-On Test Request 02/28/22 14:07 WBC RBC Hgb Hct MCV MCH MCHC RDW Plt Count MPV Immature Gran % Neutrophils % Lymphocytes % Monocytes % Eosinophils % Basophils % Nucleated RBC % Absolute Neutrophils Absolute Lymphocytes Absolute Monocytes Absolute Eosinophils Absolute Basophils APTT Sodium Potassium Chloride Carbon Dioxide Anion Gap BUN Creatinine Est GFR (CKD-EPI 2020) Glucose Hemoglobin A1c Calcium Magnesium Troponin I 2994 H* Triglycerides Total Cholesterol LDL Cholesterol, Calc HDL Cholesterol Procalcitonin Add-On Test Request PFSH All Active Problems (Updated 03/01/22 @ 14:36 by Toshia Perez MD) Obesity, morbid, BMI 40.0-49.9 (Acute) Non-insulin dependent diabetes mellitus (Acute) Hypomagnesemia (Acute) Ventricular tachycardia (paroxysmal) (Acute) Discharge planning issues (Acute) Cocaine abuse (Acute) Acute non-ST elevation myocardial infarction (NSTEMI) (Acute) Screening for colon cancer (Acute) Medical History Cervicalgia Chronic back pain Cyst of skin Depression Ganglion cyst Lumbar radiculopathy Migraine headache Obesity Opioid dependence Sciatica Tobacco use Weakness Surgical History SPINAL SURGERY Family History (Updated 02/28/22 @ 16:42 by Toshia Perez MD) Mother Heart disease Diabetes Cancer cervical cancer Maternal Grandmother Heart disease Maternal Grandfather Heart disease Maternal Aunt Stroke Cancer breast cancer Brother Diabetes Social History Smoking/Tobacco Use Status: Current every day Smoking risk assessment performed?: Yes Alcohol Intake: never Drug use: Never Substance use type: does not use Do you feel safe at home: Yes Do you feel safe in your relationship?: Yes
--- NOTE | 2022-03-01 14:23 | CHAPLAIN ---
Cherelle was sitting up in bed when I visited. She is tired, hungry and frustrated about not knowing when she'll be transferred to [facility], where she'll likely have some kind of cardiac procedure but she doesn't know what yet. She hasn't eaten since yesterday because she thought she'd was being transferred yesterday. Cherelle's daughter visited this morning and she is in touch with other friends by phone. I brought up a comfort shawl for Cherelle later in the day.
[2022-03-01] MEDS: Pantoprazole 40 MG VIAL IVP (16:46)
== END 2022-03-01 17:15 | disposition short-term general hospital (02) | DRG 281 ==
LOC: ER 15:13 → ICU 15:54
PROVIDERS: Family Medicine; Admitting Provider Internal Medicine; Emergency Provider Student in an Organized Health Care Education/Training Program; PCP Family Medicine; Visit Provider Internal Medicine
DX: I21.4 Non-ST elevation (NSTEMI) myocardial infarction (principal); F11.20 Opioid dependence, uncomplicated; I47.2 Ventricular tachycardia; Z68.42 Body mass index [BMI] 45.0-49.9, adult; F14.10 Cocaine abuse, uncomplicated; F17.210 Nicotine dependence, cigarettes, uncomplicated; G89.29 Other chronic pain; F32.A Depression, unspecified; M54.40 Lumbago with sciatica, unspecified side; M54.16 Radiculopathy, lumbar region; R53.1 Weakness; E83.42 Hypomagnesemia; E11.9 Type 2 diabetes mellitus without complications; E66.01 Morbid (severe) obesity due to excess calories; Z82.49 Family history of ischemic heart disease and other diseases of the circulatory system
CPT/HCPCS: 36415; 80048; 80053; 80061; 80307; 84145; 87635; 93005; 96365; 96366; 99291; 71045; 83036; 83735; 84484; 85025; 85730; 93010; 93306

== ENCOUNTER 2022-04-11 15:16 | Outpatient (REF) | payer OTHER, MEDICAID, SELFPAY ==
[2022-04-13 11:40] LABS: COVID-19 RT-PCR UVMMC Result Negative (Negative)
== END 2022-04-11 15:17 | disposition home or self-care (01) ==
LOC: NCHCN 15:16
PROVIDERS: PCP Family Medicine; Visit Provider Family Medicine
DX: Z20.822 Contact with and (suspected) exposure to COVID-19 (principal); U07.1 COVID-19
CPT/HCPCS: U0003

== ENCOUNTER 2022-06-20 01:37 | Outpatient (CLI) | payer OTHER, MEDICAID, SELFPAY ==
--- NOTE | 2022-06-20 13:07 | DI.MAMMO_ITS ---
Exam(s) MAMMO SCREENING EXAM: MAMMO SCREENING CLINICAL HISTORY: PREVENTIVE HEALTH CARE Z00.00, SCREENING FOR BREAST CANCER TECHNIQUE: Mammograms were interpreted according to the usual protocol including computer analysis w [employer] system, tomosynthesis and C-view imaging. COMPARISON: None, baseline examination. FINDINGS: The breasts are composed of mainly fatty density , Breast Density category A. No suspicious masses or suspicious microcalcifications are seen. No skin thickening or abnormal axillary lymph nodes are seen. IMPRESSION: BI-RADS Category 1, Negative mammogram Yearly screening mammography is recommended. Breast Density - Category A, fatty density. A negative radiographic report should not delay biopsy if a dominant or clinically suspicious mass is present. Up to ten percent of cancers are not identified on mammography. A negative report may reinforce clinical impression. Adenosis and dense breasts may obscure an underlying neoplasm. False positive reports average 6 to 10%. Patient will receive a letter notifying them of these results.
== END 2022-06-20 01:57 ==
LOC: DI 01:38
PROVIDERS: PCP Family Medicine; Visit Provider Family Medicine
DX: Z12.31 Encounter for screening mammogram for malignant neoplasm of breast (principal)
CPT/HCPCS: 77063; 77067

== ENCOUNTER 2022-07-03 13:48 | Outpatient (CLI) | payer OTHER, MEDICAID, SELFPAY ==
--- NOTE | 2022-07-03 13:45 | RT.EKG_ITS ---
APPROVED REPORT Exam: Resting ECG Reason for Exam: cardiac evaluation Patient Location: O HR:79 bpm ECG Measurements Heart Rate 79 AXIS VT 137 P 64 QRSd 89 QRS -34 QT 364 T 1 QTc 418 Conclusion Sinus rhythm...normal P axis, V-rate 50- 99 Left ventricular hypertrophy...multiple voltage criteria Inferior infarct, old...Q >35mS, II III aVF
== END 2022-07-03 13:49 | disposition home or self-care (01) ==
PROVIDERS: PCP Family Medicine; Visit Provider Internal Medicine Cardiovascular Disease
DX: I21.4 Non-ST elevation (NSTEMI) myocardial infarction (principal); I47.20 Ventricular tachycardia, unspecified; Z98.61 Coronary angioplasty status; R94.31 Abnormal electrocardiogram [ECG] [EKG]; I25.2 Old myocardial infarction
CPT/HCPCS: 93010

== ENCOUNTER → 2022-07-03 13:56 | Outpatient (BNVA) | payer OTHER, MEDICAID, SELFPAY | PROVIDERS: PCP Family Medicine; Referring Provider Family Medicine; Visit Provider Internal Medicine Cardiovascular Disease | DX: I25.10 Atherosclerotic heart disease of native coronary artery without angina pectoris (principal); I25.2 Old myocardial infarction; Z98.61 Coronary angioplasty status | CPT/HCPCS: 93005; 99203; 99214 ==

== ENCOUNTER 2022-07-10 14:04 | Outpatient (RCR) | payer OTHER, MEDICAID, MEDICARE, SELFPAY | END 2022-07-10 23:59 | disposition home or self-care (01) | LOC: CR 14:04 | PROVIDERS: PCP Family Medicine; Visit Provider Internal Medicine Cardiovascular Disease ==

== ENCOUNTER 2022-09-27 02:28 | Outpatient (CLI) | payer OTHER, MEDICAID, SELFPAY ==
--- NOTE | 2022-09-27 14:44 | DI.US_ITS ---
APPROVED REPORT EXAM: Comprehensive 2D, Doppler, and color-flow Echocardiogram Patient Location: Out-Patient Automobile Appraiser: Diane Ivory RDCS (AE) Indications: LV and RV function, CAD, Preop Colonoscopy Other Information Study Quality: Adequate Conclusion Normal left ventricular wall thickness and chamber size. Ejection fraction is 55%. Wall motion is n ormal Normal right ventricular size and systolic function Left atrium is mildly dilated. Right atrial size is normal Trileaflet aortic valve without stenosis or regurgitation Mildly thickened mitral leaflets with mild regurgitation Normal tricuspid valve with trace regurgitation. Estimated right ventricular systolic pressure is 28 mmHg Wall motion Left Ventricle The left ventricle is normal size. The left ventricular systolic function is normal. The left ventric ular ejection fraction is within the normal range. There is normal left ventricular wall thickness. T here is normal LV segmental wall motion. There is no ventricular septal defect visualized. LVEF is 55 %. Right Ventricle The right ventricle is normal size. The right ventricular systolic function is normal. The RVSP is 27 .9_ mmHg. Atria Left atrium is mildly dilated. The right atrium size is normal. The interatrial septum is intact with no evidence for an atrial septal defect. Aortic Valve The aortic valve is normal in structure. Aortic valve is trileaflet. There is no aortic valvular sten osis. No aortic regurgitation is present. Mitral Valve Mitral valve leaflets are mildly thickened. No evidence of mitral valve stenosis. Mild mitral regurgi tation. Tricuspid Valve The tricuspid valve is normal in structure. There is no tricuspid valve stenosis. Trace tricuspid reg urgitation. Pulmonic Valve The pulmonary valve is normal in structure. There is no pulmonic valvular stenosis. There is no pulmo belkys valvular regurgitation. Great Vessels The aortic root is normal in size. The ascending aorta is normal Aortic arch is normal in caliber. IV C is normal in size and collapses >50% with inspiration. Pericardium There is no pericardial effusion. 2D Dimensions IVSD d PLAX 0.97 cm F: 0.6-1.0 LV Vol A2C d MOD 169.4 mL LVPW d PLAX 1.01 cm F: 0.6 - 1.0 LV Vol A4C d MOD 134.9 mL LVID d PLAX 5.05 cm F: 3.8 - 5.2 LA vol/ BSA A2C s A-L 36.2 mL/m2 LVDs 3.55 cm F: 2.2 - 3.5 LA vol/ BSA A4C s A-L 32.2 mL/m2 Ao Root d 2.75 cm F: 2.7 - 3.3 LA Vol/ BSA Biplane s A-L 34.6 mL/m2 RA Area A4C 14.64 cm2 LA Area A4C s MOD 21.40 cm2 RA Vol/ BSA A4C s A-L 17.4 mL/m2 LA Area A2C s MOD 22.36 cm2 Ao Asc Diam d 3.25 cm F: 2.3 - 3.1 LV EF A4C MOD 55.1 % LV EF Teichholz 56.1 % LV EF A2C MOD 55.5 % LVEF (Harden's) 55.11 % F: 54 - 74 LV EF Biplane MOD 55.1 % LV Volume 112.52 mL F: 46 - 106 SV 84.00 mL LV Volume Index 53.58 mL/m2 F: 29 - 61 SV Index 40.02 mL/m2 LV Vol Biplane MOD 152.4 mL FS 29.40 % M-Mode TAPSE 2.17 cm (M/F) >1.7 LV Diastology MV E' medial 0.057 (>0.07 m/s) E/A Ratio 1.0 LV E/e MED 15.25 (<14) MV E Vmax 0.87 (0.4-1.3 m/s) MV E' lateral 0.112 (>0.1 m/s) MV A Vmax 0.85 (0.4-1.3 m/s) LV E/e LAT 7.75 (<14) MV E/A Ratio 0.99 MV E/E' medial 15.29 MV E/E' lateral 7.75 Aortic Valve LVOT Area 2.91 cm2 AoV Area Vmax 2.19 cm2 LVOT Vmax 1.30 m/s AoV Area/ BSA (Vmax) 1.04 cm2/m2 LVOT Mean Henry. 0.87 m/s SHOBHA Mean Henry. 1.97 cm2 LVOT Peak Grad 6.7 mmHg SHOBHA Mean Henry. Index 0.94 cm2/m2 LVOT Mean Grad 3.6 mmHg LVOT VTI 0.250 m LVOT Diam s 1.90 cm AoV Vmax 1.72 m/s Velocity Ratio 0.76 AoV Mean Henry. 1.29 m/s AoV Peak Grad 11.8 mmHg LVOT SV 72.57 mL AoV Mean Grad 7.2 mmHg AoV VTI 0.294 m AoV Area VTI 2.47 cm2 AoV Area/ BSA (VTI) 1.17 cm/m2 Mitral Valve MV DT 268 (160-240 msec) MV PHT 78 msec MV Area PHT 2.83 cm2 MV VTI 0.334 m MV Area VTI 2.18 (4.0-6.0 cm2) Pulmonary Valve PV Vmax 1.03 (0.5-1.5 m/s) RVOT Peak Gr. 2.51 mmHg PV Peak Grad 4.2 mmHg RVOT Mean Gr. 1.25 mmHg PV Mean Grad 2.7 mmHg RVOT VTI 0.166 m PV VTI 0.246 m RVOT Vmax 0.79 m/s Tricuspid Valve TR Peak Grad 24.8 mmHg TR Vmax 2.49 m/s RA Pressure 3.00 mmHg RVSP (TR) 27.9 mmHg
== END 2022-09-27 02:48 ==
LOC: DI 02:29
PROVIDERS: PCP Family Medicine; Visit Provider Internal Medicine Cardiovascular Disease
DX: I25.10 Atherosclerotic heart disease of native coronary artery without angina pectoris (principal); Z12.11 Encounter for screening for malignant neoplasm of colon
CPT/HCPCS: 93306

== ENCOUNTER → 2022-11-08 13:20 | Outpatient (BNVA) | payer OTHER, MEDICAID, SELFPAY | PROVIDERS: PCP Family Medicine; Referring Provider Family Medicine; Visit Provider Internal Medicine Cardiovascular Disease | DX: I25.10 Atherosclerotic heart disease of native coronary artery without angina pectoris (principal); Z95.5 Presence of coronary angioplasty implant and graft; Z79.02 Long term (current) use of antithrombotics/antiplatelets; F17.210 Nicotine dependence, cigarettes, uncomplicated | CPT/HCPCS: 99213 ==

== ENCOUNTER 2023-02-20 11:09 | Outpatient (REF) | payer OTHER, MEDICAID, SELFPAY ==
[2023-02-26 09:08] LABS: Buprenorphine Negative ng/mL (Cutoff: 5.0); Norbuprenorphine Negative ng/mL (Cutoff: 2.5)
== END 2023-02-20 11:10 | disposition home or self-care (01) ==
LOC: NCHCN 11:09
PROVIDERS: PCP Family Medicine; Visit Provider Family Medicine
DX: F11.20 Opioid dependence, uncomplicated (principal)
CPT/HCPCS: 80348

== ENCOUNTER → 2023-10-03 14:50 | Outpatient (BNVA) | payer OTHER, MEDICAID, SELFPAY | PROVIDERS: PCP Family Medicine; Referring Provider Family Medicine; Visit Provider Podiatrist | DX: E11.43 Type 2 diabetes mellitus with diabetic autonomic (poly)neuropathy; E11.40 Type 2 diabetes mellitus with diabetic neuropathy, unspecified; D17.9 Benign lipomatous neoplasm, unspecified; L84 Corns and callosities | CPT/HCPCS: 11055; 99213 ==

== ENCOUNTER 2024-06-18 18:17 | Emergency (ER) | payer MEDICARE, MEDICAID, SELFPAY ==
[2024-06-18 18:21] VITALS: BP 160/89; PULSE 106; RESP 18; TEMP 36.5; O2SAT 96
--- NOTE | 2024-06-18 18:45 | DI.CT_ITS ---
Exam(s) CT HEAD WO EXAM: CT HEAD WO CLINICAL HISTORY: L. temporal headache. TECHNIQUE: Imaging Protocol: Axial computed tomography images with coronal and sagittal reformatted images were created and reviewed COMPARISON: No exams were available for comparison FINDINGS: Ventricles and Extra axial spaces: Normal in size and morphology for the patient's age. Hemorrhage: None. Cerebral parenchyma: Normal. Midline shift: None. Brainstem/Cerebellum: Normal. Calvarium: Normal. Visualized Paranasal sinuses/Mastoids: Clear. Soft Tissues: Unremarkable. IMPRESSION: No acute intracranial process. RADIATION DOSE DELIVERED: 862.86mGy.cm Total DLP DATA REPOSITORY: All CT scans at this facility are submitted to the National Radiology Data Registry (NRDR) Dose Index Registry (DIR) with the [employer] ([employer]). RADIATION OPTIMIZATION: All CT scans at this facility use at least one of these dose optimization te chniques: automated exposure control; mA and/or kV adjustment per patient size (includes targeted exa ms where dose is matched to clinical indication); or iterative reconstruction.
[2024-06-18 19:05] LABS: Abs Immature Grans 0.03 10^3/uL (0.0-0.06); Absolute Basophil Count 0.07 10^3/uL (0.0-0.2); Absolute Eosinophil Count 0.09 10^3/uL (0.0-0.7); Absolute Lymphocyte Count 2.88 10^3/uL (1.2-3.4); Absolute Monocyte Count 0.48 10^3/uL (0.1-0.8); Absolute Neutrophil Count 5.78 10^3/uL (1.2-6.7); Basophils % 0.8 %; HGB 16.4 g/dL (11.2-15.7); Immature Grans % 0.3 %; Lymphocytes % 30.9 %; MCH 27.8 pg (27.0-33.0); MCHC 32.2 % (32.0-36.0); MCV 87 fL (80-95); MPV 9.5 fL (8.0-11.0); Monocytes % 5.1 %; Neutrophils % 61.9 %; Platelet Count 314 10^3/uL (130-400); RBC 5.89 10^6/uL (3.93-5.22); RDW 12.9 % (11.7-14.6); RDW-SD 40.6 fL; WBC 9.33 10^3/uL (4.4-10.8)
[2024-06-18 19:06] LABS: ESR 20 mm/hr (0-20)
[2024-06-18 19:20] LABS: ALT 21 U/L (14-59); AST 12 U/L (15-37); Albumin 3.6 g/dL (3.4-5.0); Alkaline Phosphatase 103 U/L (46-116); Anion Gap 7.4 mmol/L (3-11); BUN 24 mg/dL (7-18); Bilirubin, Total 0.15 mg/dL (0.2-1.0); C-Reactive Protein < 0.50 mg/dL (<or=0.5); CO2 30.6 mmol/L (21.0-32.0); CREATININE 1.3 mg/dL (0.55-1.02); Calcium 9.6 mg/dL (8.5-10.1); Chloride 104 mmol/L (98-107); Glucose 128 mg/dL (74-106); Magnesium 2.1 mg/dL (1.8-2.4); Potassium 4.5 mmol/L (3.5-5.1); Sodium 142 mmol/L (136-145)
--- NOTE | 2024-06-18 19:24 | ED.GENADUL_ITS ---
Discharge Plan Disposition Patient Disposition: Home Condition: Stable Discharge Details Clinical Impression: Trigeminal neuralgia, GERD (gastroesophageal reflux disease), Coronary artery disease, Diabetes mellitus with neuropathy Primary Care Provider: Frederick Jimenez ED Provider: Nelda Thorpe Home Meds and New Rx's Prescriptions: New carbamazepine 200 mg tablet 100 mg PO BID Qty: 5 0RF Rx Instructions: You dose will need to be titrated up by your primary care doctor No Action pantoprazole 20 mg tablet,delayed release (DR/EC) 20 mg PO DAILY albuterol sulfate [ProAir HFA] 8.5 GM HFA aerosol inhaler 2 puff Inhalation Q4H PRN Mirena 20 mcg/24 hours (7 yrs) 52 mg intrauterine device 1 device intrauterine ONCE Patient Comments: placed 02/08/21 Rx Instructions: as a single dose sumatriptan succinate 50 mg tablet 50 mg PO PRN ibuprofen 800 mg tablet 800 mg PO TID PRN metformin 500 mg tablet 500 mg PO BID Trulicity 1.5 mg/0.5 mL pen injector 1.5 mg subcut QWEEK aspirin 81 mg tablet,delayed release (DR/EC) 81 mg PO DAILY atorvastatin 80 mg tablet 80 mg PO DAILY nitroglycerin 0.4 mg tablet, sublingual 0.4 mg sublingual Q5M PRN Rx Instructions: do not exceed 3 doses per episode furosemide 20 mg tablet 20 mg PO DAILY PRN buprenorphine-naloxone [Suboxone] 8-2 mg film 2 film sublingual DAILY Patient Comments: PLACE TWO FILMS UNDER THE TONGUE EVERY DAY Discharge Instructions Instructions: Trigeminal neuralgia Additional Instructions: You were seen in the emergency department today for evaluation of an electric s hocklike pain in your mosque that is most concerning for trigeminal neuralgia. In our department you had a full physical examination performed, had reassuring laboratory studies with no sign of inflammation. You did have a CT scan of your brain which I have reviewed, which does not show any obvious intracranial hemorrhage. This needs to be read by a radiologist at this time you have elected to leave the facility before this radiologist has had a chance to read your study. You will be contacted with any concerning results. You need to follow-up with your primary care provider at your scheduled visit on Saturday. I provided you with a medication called carbamazepine, but this medication needs to be uptitrated to an effective dose in the outpatient environment. Please use caution as this can sometimes cause some dizziness or nausea. Please continue all your other home medications, return to the emergency department with any weakness, numbness, or new rashes, and thank you for allowing us to be part of your care. HPI General Mode of arrival: ambulatory . Date/Time Provider Initiated Documentation: 06/18/24 18:44 . Limitations to Documentation: no limitations . Information obtained by: patient and old records reviewed . HPI Narrative: HPI: This is a 48-year-old female patient presenting for evaluation of facial and head pain. The patient reports that for about a month she has had lightninglike pain that radiates from her mosque up into her forehead. She notices that this pain is significantly worse when she touches it, if she brushes her hair. She has not sustained any recent injuries but did have a fall about 6 months ago for which she was not evaluated. She states that she is not experiencing any vision changes, does not have worsening of her pain with movement of her eyes, denies photophobia. She has not noted any weakness, numbness, or speech changes. She has not had any rashes, has a history of shingles but has not appreciated any vesicles or other skin changes. No changes in her hearing, tolerating p.o. intake appropriately. Exam: Gen: Awake and alert, in no apparent distress HEENT: Non-icteric sclera, PERRL, EOMs are full and without nystagmus. No visual acuity changes or diplopia. The patient has tenderness to palpation of the left mosque with no overlying skin changes or palpable temporal arterial changes. Neck: Supple Lungs: No apparent respiratory distress, normal respiratory effort. CV: Appears well perfused, strong distal pulses Abdomen: Non-distended MSK: Moves 4 extremities without apparent limitation in ROM Skin: Visualized skin without rashes, cyanosis. Neuro: Cranial nerves II through XII intact and symmetrical bilaterally, 5 out of 5 strength x 4 extremities without sensory deficits. Normal gait. Psych: Appropriate for situation. MDM: This is a 48-year-old female patient presenting for evaluation of electric- like pain in her left mosque. My differential includes but is not limited to trigeminal neuralgia, temporal arteritis, certainly considered intracranial abnormalities including hemorrhage, skull fracture, mass occupying lesion. I see no evidence on my physical examination for herpes zoster, the patient has no visual symptoms to increase my concern for optic neuritis. The patient reports that she does not have a history of migraines or other primary headache disorders, though I did consider tension headache, cluster headache, etc. The duration of symptoms and lack of neurodeficits does decrease my concern for subarachnoid hemorrhage. The patient is desiring to avoid medications, including nerve agent such as gabapentin and Lyrica. She is amenable to laboratory studies, and so I will obtain CBC, CMP, CRP, ESR, and we will obtain a Noncon CT head to evaluate for significant abnormalities. ED Course: I independently interpreted the laboratory studies, which show no significant leukocytosis, anemia, or thrombocytopenia. The chemistry panel is without evidence of electrolyte abnormality, new or worsening kidney dysfunction, or liver injury. ESR and CRP are not elevated, making inflammatory changes such as temporal arteritis less likely. CT head without evidence of intracranial hemorrhage or space-occupying lesion. I am most concerned for trigeminal neuralgia. I had a shared decision-making conversation with the patient and she is amenable to trialing carbamazepine, I provided her with an initial starting dose of 100 mg twice daily, and she has a scheduled appointment with her primary care provider on Saturday to discuss this symptom and who can titrate this medication up to effective doses. At this time, the patient has had a full medical evaluation and is safe for discharge to home. They are hemodynamically stable, ambulatory, and tolerating PO. They are understanding of the follow-up plan and return precautions. They left our facility without incident. Nelda Thorpe MD Related Data Home Medications ?Medication ?Instructions ?Recorded ?Confirmed albuterol sulfate 90 mcg/actuation 2 puff inhalation Q4H PRN 05/17/17 06/18/24 aerosol inhaler (ProAir HFA) buprenorphine 8 mg-naloxone 2 mg 2 film sublingual DAILY 02/28/22 06/18/24 sublingual film (Suboxone) ibuprofen 800 mg tablet 800 mg PO TID PRN 03/09/22 06/18/24 levonorgestrel 21 mcg/24 hr (up to 1 device intrauterine ONCE 03/09/22 06/18/24 8 years) 52 mg intrauterine device (Mirena) sumatriptan succinate 50 mg tablet 50 mg PO PRN 03/09/22 06/18/24 aspirin 81 mg tablet,delayed 81 mg PO DAILY 06/07/22 06/18/24 release atorvastatin 80 mg tablet 80 mg PO DAILY 06/07/22 06/18/24 dulaglutide 1.5 mg/0.5 mL 1.5 mg subcut QWEEK 06/07/22 06/18/24 subcutaneous [facility] metformin 500 mg tablet 500 mg PO BID 06/07/22 06/18/24 nitroglycerin 0.4 mg sublingual 0.4 mg sublingual Q5M PRN 06/07/22 06/18/24 tablet pantoprazole 20 mg tablet,delayed 20 mg PO DAILY 07/30/23 06/18/24 release furosemide 20 mg tablet 20 mg PO DAILY PRN 10/03/23 06/18/24 carbamazepine 200 mg tablet 100 mg (1/2 x 200 mg) PO BID #5 06/18/24 tabs Previous Rx's ?Medication ?Instructions ?Recorded carbamazepine 200 mg tablet 100 mg (1/2 x 200 mg) PO BID #5 06/18/24 tabs Allergies Allergy/AdvReac Type Severity Reaction Status Date / Time fentanyl Allergy Unknown None noted Verified 06/18/24 18:25 on referral Penicillins Allergy Unknown Unknown, Verified 06/18/24 18:25 happened as a child hydrocodone bitartrate (From AdvReac Intermediate Nausea Verified 06/18/24 18:25 Vicodin) morphine AdvReac Intermediate FLU LIKE Verified 06/18/24 18:25 SYMPTOMS General Stated Complaint: Nk/Back Pain YANDY: 3 Course Vital Signs Vital signs: Vital Signs Temperature 36.5 C 06/18/24 18:21 Pulse 106 H 06/18/24 18:21 Respiratory Rate 18 06/18/24 18:21 Blood Pressure 160/89 H 06/18/24 18:21 Pulse Oximetry 96 06/18/24 18:21 Temperature 36.5 C 06/18/24 18:21 Pulse 106 H 06/18/24 18:21 Respiratory Rate 18 06/18/24 18:21 Blood Pressure 160/89 H 06/18/24 18:21 Blood Pressure Position Sitting 06/18/24 18:21 Pulse Oximetry 96 06/18/24 18:21 Oxygen Delivery Method Room Air 06/18/24 18:21 Oxygen Flow Rate 0 06/18/24 18:21 Lab/Test Results Lab/Test Results: Laboratory Tests Range/Units 06/18/24 19:00 WBC (4.4-10.8) 10^3/uL 9.33 RBC (3.93-5.22) 10^6/uL 5.89 H Hgb (11.2-15.7) g/dL 16.4 H Hct (36.0-46.0) % 51.0 H MCV (80-95) fL 87 MCH (27.0-33.0) pg 27.8 MCHC (32.0-36.0) % 32.2 RDW (11.7-14.6) % 12.9 Plt Count (130-400) 10^3/uL 314 MPV (8.0-11.0) fL 9.5 Immature Gran % % 0.3 Neutrophils % % 61.9 Lymphocytes % % 30.9 Monocytes % % 5.1 Eosinophils % % 1.0 Basophils % % 0.8 Nucleated RBC % (0.0-0.3) % 0.0 Absolute Neutrophils (1.2-6.7) 10^3/uL 5.78 Absolute Lymphocytes (1.2-3.4) 10^3/uL 2.88 Absolute Monocytes (0.1-0.8) 10^3/uL 0.48 Absolute Eosinophils (0.0-0.7) 10^3/uL 0.09 Absolute Basophils (0.0-0.2) 10^3/uL 0.07 ESR (0-20) mm/hr 20 Sodium (136-145) mmol/L 142 Potassium (3.5-5.1) mmol/L 4.5 Chloride (98-107) mmol/L 104 Carbon Dioxide (21.0-32.0) mmol/L 30.6 Anion Gap (3-11) mmol/L 7.4 BUN (7-18) mg/dL 24 H Creatinine (0.55-1.02) mg/dL 1.3 H Est GFR (CKD-EPI 2020) (mL/min/1.73m2) 50.10 Glucose (74-106) mg/dL 128 H Calcium (8.5-10.1) mg/dL 9.6 Magnesium (1.8-2.4) mg/dL 2.1 Total Bilirubin (0.2-1.0) mg/dL 0.15 L AST (15-37) U/L 12 L ALT (14-59) U/L 21 Alkaline Phosphatase (46-116) U/L 103 C-Reactive Protein (<or=0.5) mg/dL < 0.50 Total Protein (6.4-8.2) g/dL 8.0 Albumin (3.4-5.0) g/dL 3.6 Medical Decision Making Quality:SDOH Health Related Social Needs: No Data to Display PFSH All Active Problems (Updated 06/18/24 @ 19:33 by Nelda Thorpe MD) Trigeminal neuralgia (Acute) Pain in left foot (Acute) Corns and callosities (Acute) Lipoma (Acute) Diabetes mellitus with neuropathy (Acute) Diabetes mellitus with autonomic neuropathy (Acute) Diabetes mellitus (Chronic) type 2 Shortness of breath (Acute) Restless leg (Acute) Coronary artery disease (Chronic) GERD (gastroesophageal reflux disease) (Chronic) Obesity, morbid, BMI 40.0-49.9 (Acute) Non-insulin dependent diabetes mellitus (Acute) Hypomagnesemia (Acute) Ventricular tachycardia (paroxysmal) (Acute) Cocaine abuse (Acute) Acute non-ST elevation myocardial infarction (NSTEMI) (Acute) Screening for colon cancer (Acute) Medical History Coronavirus infection Lumbar radiculopathy, right Pelvic floor instability Migraine headache Opioid dependence Ganglion cyst Lumbar radiculopathy Obesity Cervicalgia Tobacco use Chronic back pain Weakness Depression Cyst of skin Sciatica Surgical History S/P PTCA (percutaneous transluminal coronary angioplasty) 03/01 SPINAL SURGERY Family History Mother Heart disease Diabetes Cancer cervical cancer Maternal Grandmother Heart disease Maternal Grandfather Heart disease Maternal Aunt Stroke Cancer breast cancer Brother Diabetes Social History Smoking/Tobacco Use Status: Current every day Tobacco Type: cigarettes Smoking risk assessment performed?: Yes Alcohol Intake: never Drug use: Never Substance use type: does not use Household members: children Number of Children: 1 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
--- NOTE | 2024-06-18 19:49 | DI.VRAD_ITS ---
PROCEDURE INFORMATION: Exam: CT Head Without Contrast Exam date and time: 06/18/2024 7:14 PM Age: 48 years old Clinical indication: Pain; Other: L. Temporal headache TECHNIQUE: Imaging protocol: Computed tomography of the head without contrast. COMPARISON: No relevant prior studies available. FINDINGS: Brain: No edema or hemorrhage. Cerebral ventricles: No ventriculomegaly. Paranasal sinuses: Trace mucosal thickening in paranasal sinuses. Mastoid air cells: No mastoid effusion. Bones: No acute fracture. Soft tissues: No suspicious lesions. IMPRESSION: No acute intracranial findings. Dictated and Authenticated by: Sharita Soliman MD. Ordering:KEVIN Monge MD
[2024-06-18 19:58] VITALS: BP 179/70; PULSE 79; RESP 16; O2SAT 97
[2024-06-18] MEDS: carBAMazepine 200 MG TAB 100 MG PO (19:58)
== END 2024-06-18 19:38 | disposition home or self-care (01) ==
PROVIDERS: Emergency Provider Emergency Medicine; PCP Family Medicine
DX: G50.0 Trigeminal neuralgia (principal); R03.0 Elevated blood-pressure reading, without diagnosis of hypertension; E11.40 Type 2 diabetes mellitus with diabetic neuropathy, unspecified; I25.10 Atherosclerotic heart disease of native coronary artery without angina pectoris; K21.9 Gastro-esophageal reflux disease without esophagitis; F17.210 Nicotine dependence, cigarettes, uncomplicated
CPT/HCPCS: 80053; 85652; 99284; 70450; 83735; 85025; 86140

== ENCOUNTER 2025-02-17 15:49 | Emergency (ER) | payer MEDICARE, MEDICAID, SELFPAY ==
[2025-02-17 15:55] VITALS: BP 153/96; PULSE 95; RESP 12; TEMP 36.6; O2SAT 97
--- NOTE | 2025-02-17 16:00 | DI.RAD_ITS ---
Exam(s) XR FOOT LT COMPLETE EXAM: XR FOOT LT COMPLETE CLINICAL HISTORY: Foreign body (stick) bottom of foot. TECHNIQUE: 2D digital imaging was performed. COMPARISON: No exams were available for comparison FINDINGS: 3 views There is no evidence of fracture nor diastasis of the Lisfranc joint. No significant degenerative changes at the great toe metatarsophalangeal joint. Mild midfoot degenerative changes evident. There is prominent soft tissue swelling of the dorsal aspect of the foot but no fractures of the metatarsals evident. At the level the hindfoot there is a moderate size inferior calcaneal spur. In addition, there are multiple small similar-appearing foreign bodies in the heel foot pad region, the adjacent to an area skin discontinuity/cut on the posterior aspect of the heel. IMPRESSION: Heel pad region multiple foreign bodies. This is adjacent to a cut in the skin and subcutaneous tissues No evidence of osteomyelitis. DATA REPOSITORY: RADIATION DOSE DELIVERED:
[2025-02-17] MEDS: Diph,Pertuss(Acell),Tet Vac/Pf 0.5 ML SYR IM (17:35)
[2025-02-17] MEDS: Lidocaine/Epinephri/Tetracaine Topical Gel 3 ML TP (17:35)
--- NOTE | 2025-02-17 17:41 | ED.GENADUL_ITS ---
Discharge Plan Disposition Patient Disposition: Home Condition: Stable Discharge Details Clinical Impression: Foot laceration Primary Care Provider: LEXIE BURGOS ED Provider: Dominga Dior Home Meds and New Rx's Prescriptions: New cephalexin 500 mg tablet 500 mg PO BID 10 Days Qty: 20 0RF Rx Instructions: Take 1 tablet by mouth twice daily for the next 10 days No Action pantoprazole 20 mg tablet,delayed release (DR/EC) 20 mg PO DAILY albuterol sulfate [ProAir HFA] 8.5 GM HFA aerosol inhaler 2 puff Inhalation Q4H PRN Mirena 20 mcg/24 hours (7 yrs) 52 mg intrauterine device 1 device intrauterine ONCE Patient Comments: placed 02/08/21 Rx Instructions: as a single dose ibuprofen 800 mg tablet 800 mg PO TID PRN metformin 500 mg tablet 500 mg PO BID aspirin 81 mg tablet,delayed release (DR/EC) 81 mg PO DAILY atorvastatin 80 mg tablet 80 mg PO DAILY nitroglycerin 0.4 mg tablet, sublingual 0.4 mg sublingual Q5M PRN Rx Instructions: do not exceed 3 doses per episode fluoxetine 20 mg capsule 20 mg PO DAILY lisinopril 10 mg tablet 10 mg PO DAILY buprenorphine-naloxone [Suboxone] 8-2 mg film 2 film sublingual DAILY Patient Comments: PLACE TWO FILMS UNDER THE TONGUE EVERY DAY carbamazepine 200 mg tablet 100 mg PO BID Qty: 5 0RF Rx Instructions: You dose will need to be titrated up by your primary care doctor Discharge Instructions Instructions: Taking care of cuts, scrapes, and puncture wounds Additional Instructions: At this time there is a nonsuturable laceration to the bottom of the left heel. It was cleaned it was fairly contaminated. Please follow-up with podiatry for wound recheck within the next 3 to 5 days if possible. Please take the antibiotics as directed twice daily with yogurt or probiotic for the next 10 days. Change the dressing after 2 days, allow to air dry, keep clean and dry, change dressing daily. No soaking, no swimming. Wash foot under running soap and water allowed to dry. Return or be seen sooner for any signs of infection, red streaks, drainage, swelling warmth fever or concerns. Follow up with primary care provider in 3-5 days. Return to ED sooner if any worsening or concerns. Please take Tylenol or Ibuprofen with food every 4-6 hours as needed for pain and swelling. Referrals: LEXIE BURGOS, ENROLLMENT SPECIALIST [Primary Care Provider, Medicine] - Return if symptoms worsen Referral Note: ER foot wound follow up Hazel Arthur DPM [[facility] STAFF PHYSICIAN, Podiatry] - 1 week Referral Note: ER follow up Urgent referral, please call for appt. Discharge Data Discharge Date/Time-TO BE ENTERED AT DEPARTURE: 02/17/25 19:15 HPI General Mode of arrival: ambulatory . Date/Time Provider Initiated Documentation: 02/17/25 16:13 . Limitations to Documentation: no limitations . Information obtained by: patient, RN notes reviewed and old records reviewed . HPI Narrative: 49 year old female past history of [id number] diabetes presents to the ER after sustaining a laceration to the plantar part of her left foot. This occurred Ground-level fall working in the yard. She reports that she stepped back and felt something which she thought was a stick stick in her foot. She does have approximately 2 cm laceration noted on the bottom of her heel, there is calluses noted in, bleeding is controlled does appear contaminated. She is not complaining of any pain at this time. Related Data Home Medications ?Medication ?Instructions ?Recorded ?Confirmed albuterol sulfate 90 mcg/actuation 2 puff inhalation Q 4H PRN 05/17/17 02/17/25 aerosol inhaler (ProAir HFA) buprenorphine 8 mg-naloxone 2 mg 2 film sublingual LARA LY 02/28/22 02/17/25 sublingual film (Suboxone) ibuprofen 800 mg tablet 800 mg PO TID PRN 03/09/22 0 02/17/25 levonorgestrel (Mirena) 1 device intrauterine ONCE 0 03/09/22 02/17/25 aspirin 81 mg tablet,delayed 81 mg PO DAILY 06/07/22 0 02/17/25 release atorvastatin 80 mg tablet 80 mg PO DAILY 06/07/2202/08 metformin 500 mg tablet 500 mg PO BID 06/07/2202/17 nitroglycerin 0.4 mg sublingual 0.4 mg sublingual Q5M PRN 06/07/22 02/17/25 tablet pantoprazole 20 mg tablet,delayed 20 mg PO DAILY 07/3002/17/25 release carbamazepine 200 mg tablet 100 mg (1/2 x 200 mg) PO B ID #5 06/18/24 02/17/25 tabs fluoxetine 20 mg capsule 20 mg PO DAILY 08/25/2402/08 lisinopril 10 mg tablet 10 mg PO DAILY 08/25/2402/08 cephalexin 500 mg tablet 500 mg PO BID Left foot woun d 10 02/17/25 days #20 tabs Previous Rx's ?Medication ?Instructions ?Recorded carbamazepine 200 mg tablet 100 mg (1/2 x 200 mg) PO B ID #5 06/18/24 tabs cephalexin 500 mg tablet 500 mg PO BID Left foot woun d 10 02/17/25 days #20 tabs Allergies Allergy/AdvReac Type Severity Reaction Status Date / Time fentanyl Allergy Unknown None noted Verified 02/17/25 15:57 on referral Penicillins Allergy Unknown Unknown, Verified 02/17/25 15:57 happened as a child hydrocodone bitartrate (From AdvReac Intermediate Nausea Verified 02/17/25 15:57 Vicodin) morphine AdvReac Intermediate FLU LIKE Verified 02/17/25 15:57 SYMPTOMS General Stated Complaint: Laceration YANDY: 4 Review of Systems All systems reviewed & are unremarkable except as noted in HPI and below Integumentary/Breasts Skin/Breast: Reports as per HPI and Reports wounds (Bottom of left foot) Exam Extrem Left lower extremity: foot Details: laceration (Heel) plantar proximal Details: linear, flap, contaminated, involving subcutaneous tissue, with motor nerve function intact and with sensation intact (No pain, Reports periphreal neuropathy); not actively bleeding and puncture wound Ankle/foot/toe images: 2 1. Approximately 2 cm flap noted, appears contaminated. Bleeding controlled. Course Vital Signs Vital signs: Vital Signs Temperature 36.6 C 02/17/25 15:55 Pulse 95 H 02/17/25 15:55 Respiratory Rate 12 02/17/25 15:55 Blood Pressure 153/96 H 02/17/25 15:55 Pulse Oximetry 97 02/17/25 15:55 Temperature 36.6 C 02/17/25 15:55 Temperature Source Oral 02/17/25 15:55 Pulse 95 H 02/17/25 15:55 Respiratory Rate 12 02/17/25 15:55 Blood Pressure 153/96 H 02/17/25 15:55 Blood Pressure Position Sitting 02/17/25 15:55 Pulse Oximetry 97 02/17/25 15:55 Oxygen Delivery Method Room Air 02/17/25 15:55 Oxygen Flow Rate 0 02/17/25 15:55 Medical Decision Making 49 year old female past history of [id number] diabetes presents to the ER after sustaining a laceration to the plantar part of her left foot. This occurred Ground-level fall working in the yard. She reports that she stepped back and felt something which she thought was a stick stick in her foot. She does have approximately 2 cm laceration noted on the bottom of her heel, there is calluses noted in, bleeding is controlled does appear contaminated. She is not complaining of any pain at this time. LET ordered, wound care, scrub with chlorhexidine and saline and irrigation of the wound. Unfortunately at this time it does not appear that the flap has much vasculature, no bleeding noted I did discuss this with the patient that that area of skin may not be suturable, will trim flap, she verbalized understanding. Patient is a diabetic will have prolonged healing, I will refer her to pharmacy tech customer service for follow-up. 1856: Cleaned wound chlorhexidine, irrigated with sterile saline, wound moderately contaminated. Patient tolerated well. Flap was trimmed. Xeroform dressing applied, dressed with Kerlix. Will give patient cephalexin and follow- up with podiatry. This text was generated using [employer] system, please disregard any oddities of phrase or misspellings. PFSH All Active Problems (Updated 02/17/25 @ 19:02 by Dominga Dior NP) Foot laceration (Acute) Left-sided trigeminal neuralgia (Acute) Pain in left foot (Acute) Corns and callosities (Acute) Lipoma (Acute) Diabetes mellitus with neuropathy (Acute) Diabetes mellitus with autonomic neuropathy (Acute) Diabetes mellitus (Chronic) type 2 Shortness of breath (Acute) Restless leg (Acute) Coronary artery disease (Chronic) GERD (gastroesophageal reflux disease) (Chronic) Obesity, morbid, BMI 40.0-49.9 (Acute) Non-insulin dependent diabetes mellitus (Acute) Hypomagnesemia (Acute) Ventricular tachycardia (paroxysmal) (Acute) Cocaine abuse (Acute) Acute non-ST elevation myocardial infarction (NSTEMI) (Acute) Screening for colon cancer (Acute) Medical History (Updated 02/17/25 @ 19:02 by Dominga Dior NP) Atherosclerosis of coronary artery without angina pectoris Coronavirus infection Lumbar radiculopathy, right Pelvic floor instability Migraine headache Opioid dependence Ganglion cyst Lumbar radiculopathy Obesity Cervicalgia Tobacco use Chronic back pain Weakness Depression Cyst of skin Sciatica Surgical History S/P PTCA (percutaneous transluminal coronary angioplasty) 03/01 SPINAL SURGERY Family History Mother Heart disease Diabetes Cancer cervical cancer Maternal Grandmother Heart disease Maternal Grandfather Heart disease Maternal Aunt Stroke Cancer breast cancer Brother Diabetes Social History Smoking/Tobacco Use Status: Current every day Tobacco Type: cigarettes Smoking risk assessment performed?: Yes Alcohol Intake: never Drug use: Never Substance use type: does not use Household members: children Number of Children: 1 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
[2025-02-17] MEDS: Cephalexin 500 MG CAP, 2 CAPS/BTL PO (19:14)
[2025-02-17] MEDS: Cephalexin 500 MG CAP PO (19:14)
== END 2025-02-17 19:15 | disposition home or self-care (01) ==
PROVIDERS: Emergency Provider Registered Nurse Emergency; PCP Nurse Practitioner Family
DX: S91.312A Laceration without foreign body, left foot, initial encounter (principal); Z23 Encounter for immunization; W26.8XXA Contact with other sharp object(s), not elsewhere classified, initial encounter
CPT/HCPCS: 90471; 90715; 99284; 73630; 99283

== ENCOUNTER 2025-06-09 15:45 | Outpatient (REF) | payer MEDICARE, MEDICAID, SELFPAY ==
[2025-06-09 20:22] LABS: HCT 45.4 % (36.0-46.0); HGB 14.7 g/dL (11.2-15.7); MCH 28.5 pg (27.0-33.0); MCHC 32.4 % (32.0-36.0); MCV 88 fL (80-95); MPV 10.0 fL (8.0-11.0); Platelet Count 281 10^3/uL (130-400); RBC 5.15 10^6/uL (3.93-5.22); RDW 11.6 % (11.7-14.6); RDW-SD 37.5 fL; WBC 7.87 10^3/uL (4.4-10.8)
[2025-06-09 20:40] LABS: ALT 23 U/L (10-49); AST 18 U/L (<34); Albumin 4.3 g/dL (3.2-5.0); Alkaline Phosphatase 99 U/L (46-116); Anion Gap 10.6 mmol/L (3-11); BUN 28 mg/dL (9-23); Bilirubin, Total 0.2 mg/dL (0.2-1.2); CO2 22.4 mmol/L (20.0-31.0); Calcium 8.9 mg/dL (8.3-10.6); Chloride 106 mmol/L (98-107); Glucose 183 mg/dL (74-106); Potassium 5.0 mmol/L (3.5-5.1); Sodium 139 mmol/L (136-145); Total Protein 6.9 g/dL (5.7-8.2)
[2025-06-09 20:55] LABS: Hemoglobin A1C 6.4 % (<5.7)
== END 2025-06-09 15:46 | disposition home or self-care (01) ==
LOC: NCHCN 15:45
PROVIDERS: PCP Nurse Practitioner Family; Visit Provider Nurse Practitioner Family
DX: E11.9 Type 2 diabetes mellitus without complications (principal); G50.0 Trigeminal neuralgia; I10 Essential (primary) hypertension
CPT/HCPCS: 80053; 85027; 83036